=== PATIENT | female | born 1975 | race Caucasian/White ===

== ENCOUNTER 2022-01-09 13:25 | Inpatient (IN) | payer OTHER, SELFPAY ==
--- NOTE | ~2022-01-09 | MR_ITS ---
EXAMINATION: MR MRCP CLINICAL INFORMATION: Biliary colic, rule out common bile duct stone. COMPARISON: Abdominal ultrasound dated 11/10/[address] scan of the abdomen and pelvis dated 01/09/2022. TECHNIQUE: MR abdomen is performed without gadolinium contrast with MRCP. 3-D reconstructed images were obtained on a separate workstation. FINDINGS: LUNG BASES: Unremarkable. LIVER: Mild diffuse homogeneous signal loss on out of phase images. A small T2 hyperintense focus is seen laterally in the right hepatic lobe measuring 1.0 cm (image 2, series 5). No other significant hepatic abnormality. BILIARY: See MRCP comments below. PANCREAS: Unremarkable. SPLEEN: Unremarkable. ADRENAL GLANDS: Unremarkable. KIDNEYS AND URETERS: The kidneys are normal in size and shape. No hydronephrosis. No perinephric stranding. GASTROINTESTINAL TRACT: No bowel obstruction. No ascites or fluid collection. ABDOMINAL WALL: No significant hernia is appreciated. LYMPH NODES: No lymphadenopathy. VASCULAR: Unremarkable. OSSEOUS STRUCTURES: Marrow signal normal. MRCP: There is a persistent small filling defect on several sequences in the distal common bile duct measuring up to 0.2 cm. ([employer] image 4, series 11). The common bile duct measures up to 0.6 cm on this image as well. No significant biliary ductal dilatation. The gallbladder and cystic duct are unremarkable. No significant intrahepatic biliary ductal dilatation. No pancreatic ductal dilatation. MR/MR MRCP IMPRESSION: 1. Persistent 0.2 cm filling defect distally in the common bile duct on several sequences suggests choledocholithiasis. No significant biliary ductal dilatation is seen. No significant gallbladder abnormality as well. 2. Small right hepatic cyst and shows benign features.
--- NOTE | ~2022-01-09 | FL_ITS ---
EXAMINATION: XR FLUOROSCOPY WITH IMAGES CLINICAL INFORMATION: History of biliary colic. MR imaging suggestive of choledocholithiasis. COMPARISON: MRI abdomen from 01/12/2022. TECHNIQUE: Fluoroscopy performed by Dr. Craig. Fluoroscopy time: 1 minute, 12 seconds Dose: 20.65 mGy Number of saved images: 13 FL/FL guidance in OR FINDINGS AND IMPRESSION: This report is provided to document use of fluoroscopic imaging equipment for ERCP. Endoscope placed, common duct cannulated and iodinated contrast injected followed by balloon sweep of the common duct. No dilated ducts. On one of the early acquired images, there appear to be filling defects in the distal CBD but it is uncertain whether this is from common duct stones or gas bubbles Please refer to the procedure report regarding procedure details and findings observed during performance of the ERCP.
--- NOTE | ~2022-01-09 | US_ITS ---
EXAMINATION: US ABDOMEN COMPLETE AND ULTRASOUND PELVIS CLINICAL INFORMATION: Abdominal pain and low back pain. COMPARISON: None TECHNIQUE: Routine complete abdomen ultrasound imaging is performed. Transabdominal and transvaginal imaging of the pelvis is performed. FINDINGS: ABDOMEN: Pancreas: The pancreas is homogeneous in echotexture without focal lesion or enlargement. Aorta and IVC: The abdominal aorta is of normal caliber in its entire length. The IVC is normal. Liver: The liver is normal size and contour with mild increased echogenicity. No focal lesion or intrahepatic ductal dilatation seen. Gallbladder: There are several echogenic mobile gallstones without wall thickening. There is a pericholecystic fluid collection seen. The CBD measures 0.5 cm and appears unremarkable. Right kidney measures 10.0 cm. There is normal cortical thickness. No echogenic stones or hydronephrosis seen. Left kidney measures 9.3 cm. There is normal cortical thickness. No echogenic stones, cysts or hydronephrosis seen. The spleen measures 10.7 cm and appears unremarkable. PELVIS: The uterus is anteverted, anteflexed and homogeneous in echotexture. It measures 10.4 cm in length and 6.8 cm in AP dimension. There is a hypoechoic lesion in the upper posterior body of the uterus measuring 2.4 x 1.6 x 1.9 cm suggestive of a small fibroid. Endometrium is thickened measuring 1.7 cm. There is a small anechoic cyst in the endometrium measuring 5.0 x 3.0 x 5.0 mm. The cervix is unremarkable. Small nabothian cysts are seen in the cervix. Right ovary measures 2.5 x 2.1 x 1.4 cm and volume 3.9 mL. There is a small calcification visualized with normal Doppler flow. Left ovary measures 3.1 x 3.1 x 2.4 cm and volume 12.1 mL. There is an anechoic cyst measuring 1.9 x 1.6 x 1.5 cm. The Doppler flow could not be documented. There is a small amount of free fluid in the cul-de-sac. US/US pelvic and transvaginal IMPRESSION: Mild hepatic steatosis without focal lesion seen. Small mobile echogenic gravel or small stones. No wall thickening or tenderness. Small uterine fibroid in the posterior body of the uterus. Small nabothian cysts in the cervix. Simple cyst left ovary and punctate calcification in the right ovary. Small amount of free fluid in the cul-de-sac.
--- NOTE | ~2022-01-09 | CT_ITS ---
EXAMINATION: CT ABDOMEN AND PELVIS WITHOUT CONTRAST CLINICAL INFORMATION: Right flank pain COMPARISON: None TECHNIQUE: Multidetector volumetric imaging was performed from the superior aspect of the liver through the pubic symphysis. Sagittal and coronal reformatted images were obtained on the technologist's workstation. This CT examination was performed using dose optimization techniques as appropriate, variously including the following: *Automated exposure control *Adjustment of mA and/or kV according to patient size (this includes techniques or standardized protocols for targeted exams where dose is matched to indication/reason for exam; i.e. extremities or head) *Use of iterative reconstruction technique DLP: 615 mGy-cm FINDINGS: LUNG BASES: The visualized lung bases are unremarkable. LIVER, GALLBLADDER, AND BILIARY TREE: The liver is slightly hypoattenuating relative to the spleen consistent with hepatic steatosis. No focal liver lesion. The gallbladder is unremarkable with no evidence of radiopaque gallstones, gallbladder wall thickening, or obvious pericholecystic inflammatory changes. PANCREAS: There is a 4 mm calculus in the head of the pancreas along the course of the common bile duct consistent with choledocholithiasis. SPLEEN: Unremarkable. ADRENAL GLANDS: Unremarkable. KIDNEYS AND URETERS: The kidneys are normal in size, shape, and attenuation. No hydronephrosis, hydroureter, or calculi seen. No perinephric stranding. BLADDER: Unremarkable. GASTROINTESTINAL TRACT: The small and large bowel are unremarkable. The appendix is unremarkable. ABDOMINAL WALL: There is diastases of the rectus abdominis and a small fat-containing umbilical hernia. LYMPH NODES: Normal. VASCULAR: Unremarkable. PELVIC VISCERA: The uterus and adnexa are unremarkable. OSSEOUS STRUCTURES: Unremarkable. CT/CT abdomen pelvis wo con IMPRESSION: 4 mm calcification in the head of the pancreas is along the course of the common bile duct consistent with choledocholithiasis.
[2022-01-09 14:07] VITALS: BP 139/72; PULSE 101; RESP 18; TEMP 36.7; O2SAT 96; BMI 31.3
[2022-01-09 14:40] LABS: Basophils Percent Auto 0.3 % (0-2); Eosinophils Percent Auto 0.3 % (0-4); Hematocrit 42.3 % (37.0-47.0); Hemoglobin 13.9 g/dl (12.0-16.0); Lymphocytes Absolute Auto 1.5 X10*3/uL (1.2-4.9); Lymphocytes Percent Auto 23.5 % (20-40); MANUAL DIFF FLAG NO; Mean Corpuscular HGB Conc 32.9 g/dl (31.0-35.0); Mean Corpuscular Hemoglobin 29.2 pg (27.0-33.0); Mean Corpuscular Volume 88.9 fL (80.0-98.0); Mean Platelet Volume 9.5 fL (9.4-12.3); Monocytes Absolute Auto 0.4 X10*3/uL (0.1-1.2); Monocytes Percent Auto 6.9 % (2-11); Neutrophils Absolute Auto 4.3 x10*3/uL (2.0-8.3); Platelet Count 281 X10*3/uL (160-400); Red Blood Count 4.76 X10*6/uL (4.20-5.50); Red Cell Distribution Width 13.5 % (11.0-16.0); White Blood Count 6.3 X10*3/uL (4.8-10.8)
[2022-01-09 14:57] LABS: Alanine Aminotransferase 134 U/L (0-31); Albumin Level 4.1 g/dL (3.5-5.0); Alkaline Phosphatase 119 U/L (39-117); Anion Gap 11 (12-20); Aspartate Amino Transferase 72 U/L (5-31); Bilirubin Direct 0.2 mg/dL (0.0-0.5); Bilirubin Total 0.5 mg/dL (0.0-1.0); Blood Urea Nitrogen 6 mg/dL (9-16); Calcium 9.6 mg/dL (8.4-10.2); Carbon Dioxide 27 mmol/L (22-29); Chloride 108 mmol/L (96-108); Creatinine Clr Calc Pharmacy 94.7; Estimated Glomerular Filt Rate > 60; Glucose Random 107 mg/dL (60-115); Potassium 3.9 mmol/L (3.3-5.1); Sodium 142 mmol/L (135-145); Total Protein 7.5 g/dL (6.5-8.0)
[2022-01-09 16:23] LABS: Appearance Urine CLEAR; Color Urine YELLOW; Glucose Urine UA NEG (NEG); Leukocyte Esterase Urine NEG (NEG); Nitrite Urine NEG (NEG); Specific Gravity - Urine <= 1.005 (1.005-1.025); Urine Blood NEG (NEG); Urine Ketones NEG (NEG); Urine Protein NEG (NEG-TRACE)
[2022-01-09 16:27] LABS: UPreg QC Valid YES; Urine Pregnancy NEGATIVE (NEGATIVE)
[2022-01-09 16:39] LABS: Lipase 26 U/L (8-78)
[2022-01-09 17:44] VITALS: BP 109/72; PULSE 78; RESP 20; TEMP 36.7; O2SAT 98
--- NOTE | 2022-01-09 18:07 | ED_ITS ---
HPI - Abdominal Pain General Chief Complaint: Abdominal Pain Stated Complaint: Abdominal Pain Radiating to Back Time Seen by Provider: 01/09/22 16:15 Source: patient Mode of arrival: ambulatory Limitations: no limitations History of Present Illness HPI narrative: 46-year-old female past medical history significant for tubal ligation, ovarian cyst presenting to the emergency complaints of right-sided flank pain, right lower abd pain X3 days, irregular menses X a a few months, constipation X 16 years. Patient tells me that she is having right-sided flank pain that does not radiate, she tells me the pain is constant severe. She is unable to tell me what makes his pain better or worse. She also has vague complaints of intermittent right lower quadrant pain. She also reports urinary frequency however denies urgency and dysuria. She tells me she is under lot of stress and is having irregular menses, she reports she has not gotten her period in 2 months. She does have a tubal ligation, this is not the 1st time that she has regular cycles. She denies vaginal bleeding at this time, spotting, discharge. She also reports that she has been struggling with constipation times 16 years since she had her daughter, she tells me she has not been seen by entry level automotive technician for this issue she tells me she takes to coax as well as [id number] stool softeners. She denies fevers, chills, chest pain, sh ortness of breath, nausea, vomiting. Patient tells me that she is currently dealing with a lot of stress, she is currently staying at a halfway, she does not have a PCP, entry level automotive technician or OBGYN. I will provide her with a list of providers in the area. MD elicited complaint: flank pain Pertinent past history: constipation and gastritis Onset (ago): day(s) (3) Pain Consistency: constant Location: R flank Severity: severe Quality: stabbing Radiation: none Migration to: no migration Exacerbating factors: nothing Relieving factors: nothing Associated symptoms: denies other symptoms Related Data Allergies Allergy/AdvReac Type Severity Reaction Status Date / Time ibuprofen [From Motrin] Allergy Hives Verified 01/09/22 14:13 back medicin Allergy Hives Uncoded 01/09/22 14:13 Review of Systems Review of Systems Constitutional : No Weight loss, No Fever, No Chills, No Fatigue, No Malaise ENT/Mouth : No sore throat, No Rhinorrhea Eyes: No Eye Pain, No Swelling, No Redness Cardiovascular : No Chest Pain, No SOB, No Dyspnea on Exertion, No Orthopnea, No Edema, No Palpitations Respiratory : No Cough, No Sputum, No Wheezing Gastrointestinal : No Nausea, No Vomiting, No Diarrhea, No Constipation, + abdominal Pain, No Hematochezia, No Melena Genitourinary : No Dysuria, + Urinary Frequency, No Hematuria, Musculoskeletal : No joint pain, No Myalgias, No Joint Swelling Skin : No Skin Lesions, No rash Neuro : No Weakness, No Numbness, No Dizziness, No Headache Psych : No Anxiety/Panic, No Depression All other systems reviewed and are negative Yes all other systems are reviewed and are negative COUNT INCLUDES THE [facility] Past Medical History Attestation statement: The following information was validated with the patient. Source: old records reviewed and nursing notes reviewed Social History Social History Advance Directives: No Advance Directives Information Provided: No Physical Exam ED Vital Signs: Vital Signs - 24 hr 01/09/22 14:07 01/09/22 17:44 Temperature 98.0 F 98.0 F Pulse Rate 101 H 78 Respiratory Rate 18 20 Blood Pressure 139/72 109/72 Pulse Oximetry 96 98 BMI result Body Mass Index 31.3 Vital signs stable. Appearance: Alert.? Oriented X3.? No acute distress.? Head: Normocephalic, atraumatic, no step-offs or deformities Eyes: Pupils equal, round and reactive to light.? ENT: Pharynx normal.? Neck: Normal inspection.? Neck supple.? CVS: Normal heart rate and rhythm.? Pulses normal.? Respiratory: No respiratory distress.? Breath sounds normal.? Abdomen: Soft and nontender.? Skin: Skin warm and dry.? Normal skin color.? Normal skin turgor.? Extremities: No lower extremity edema.? No calf ttp. 5/5 strength to bilateral upper and lower extremities Back: No midline tenderness, no C-spine tenderness, full range of motion, no CVA tenderness bilaterally Neuro: Oriented X 3.? No motor deficit.? No sensory deficit. CN 2-12 intact Course Reevaluation(s) Reevaluation #1: CBC within normal limits, chemistry with mildly elevated transaminases, bilirubin normal alk-phos slightly elevated. No acute electrolyte abnormalities requiring intervention. Patient's CT scan concerning for choledocholithiasis. Urine is clean. Spoke to GI who tells me patient will require an MRCP as well as trending LFTs. Plan is to admit patient to the hospitalist team. Time: 19:41 Reevaluation #2: I ordered an MRCP stat for this patient as she is noted to have choledocholithiasis. Pain is well controlled with oxycodone 5 p.o.. Patient appears comfortable and in no acute distress. At this time she will be admitted to the hospitalist team. MDM - Abdominal Pain MDM Narrative Medical decision making narrative: 1807 46-year-old female history tubal ligation, ovarian cyst presents to the emergency department with complaints of right flank pain, intermittent right lower quadrant pain x3 days. As well as irregular menses x2 months, and constipation times 16 years. Patient is not followed by outpatient providers, currently living at a halfway. Physical examination benign. Plan at this time is labs, urine, lipase, CT of the abdomen and pelvis. Will rule out kidney stones, appendicitis, constipation, lactulose abnormalities, UTI. Unlikely that this is a of ovarian cysts, patient appears comfortable, she is not febrile or tachycardic, no CVA tenderness. Denies dyspareunia. Medical Records Attestation: I reviewed the patient's medical records. Lab Data Attestation: I reviewed the patient's lab results. Result diagrams: 01/09/22 14:36 01/09/22 14:36 Labs: Lab Results 01/09/22 01/09/22 01/09/22 Range/Units 14:36 14:36 16:15 WBC 6.3 (4.8-10.8) X10*3/uL RBC 4.76 (4.20-5.50) X10*6/uL Hgb 13.9 (12.0-16.0) g/dl Hct 42.3 (37.0-47.0) % MCV 88.9 (80.0-98.0) fL MCH 29.2 (27.0-33.0) pg MCHC 32.9 (31.0-35.0) g/dl RDW 13.5 (11.0-16.0) % Plt Count 281 (160-400) X10*3/uL MPV 9.5 (9.4-12.3) fL Immature Gran % (Auto) 0.0 (0.0-0.4) % Neut % (Auto) 69.0 (45-73) % Lymph % (Auto) 23.5 (20-40) % [place] % (Auto) 6.9 (2-11) % Eos % (Auto) 0.3 (0-4) % Baso % (Auto) 0.3 (0-2) % Lymph # (Auto) 1.5 (1.2-4.9) X10*3/uL [place] # (Auto) 0.4 (0.1-1.2) X10*3/uL Eos # (Auto) 0.0 (0.0-0.4) X10*3/uL Baso # (Auto) 0.0 (0.0-0.2) X10*3/uL Abs Immat Gran (auto) 0.00 (0.00-0.03) X10*3/uL Absolute Neuts (auto) 4.3 (2.0-8.3) x10*3/uL Absolute Nucleated RBC 0.000 (0.0-0.012) X10*3/uL Nucleated RBC % (auto) 0.0 (0.0-0.2) /100WBC Sodium 142 (135-145) mmol/L Potassium 3.9 (3.3-5.1) mmol/L Chloride 108 (96-108) mmol/L Carbon Dioxide 27 (22-29) mmol/L Anion Gap 11 L (12-20) BUN 6 L (9-16) mg/dL Creatinine 0.78 (0.5-1.4) mg/dL Estim Creat Clear Calc 94.7 Estimated GFR > 60 Random Glucose 107 (60-115) mg/dL Calcium 9.6 (8.4-10.2) mg/dL Total Bilirubin 0.5 (0.0-1.0) mg/dL Direct Bilirubin 0.2 (0.0-0.5) mg/dL AST 72 H (5-31) U/L ALT 134 H (0-31) U/L Alkaline Phosphatase 119 H (39-117) U/L Total Protein 7.5 (6.5-8.0) g/dL Albumin 4.1 (3.5-5.0) g/dL Lipase 26 (8-78) U/L Urine Color YELLOW Urine Appearance CLEAR Urine pH 6.0 (5.0-8.0) Ur Specific [place] <= 1.005 (1.005-1.025) Urine Protein NEG (NEG-TRACE) MG/DL Urine Glucose (UA) NEG (NEG) MG/DL Urine Ketones NEG (NEG) MG/DL Urine Blood NEG (NEG) Urine Nitrite NEG (NEG) Ur Leukocyte Esterase NEG (NEG) Urine Test (NEGATIVE) 01/09/22 Range/Units 16:15 WBC (4.8-10.8) X10*3/uL RBC (4.20-5.50) X10*6/uL Hgb (12.0-16.0) g/dl Hct (37.0-47.0) % MCV (80.0-98.0) fL MCH (27.0-33.0) pg MCHC (31.0-35.0) g/dl RDW (11.0-16.0) % Plt Count (160-400) X10*3/uL MPV (9.4-12.3) fL Immature Gran % (Auto) (0.0-0.4) % Neut % (Auto) (45-73) % Lymph % (Auto) (20-40) % [place] % (Auto) (2-11) % Eos % (Auto) (0-4) % Baso % (Auto) (0-2) % Lymph # (Auto) (1.2-4.9) X10*3/uL [place] # (Auto) (0.1-1.2) X10*3/uL Eos # (Auto) (0.0-0.4) X10*3/uL Baso # (Auto) (0.0-0.2) X10*3/uL Abs Immat Gran (auto) (0.00-0.03) X10*3/uL Absolute Neuts (auto) (2.0-8.3) x10*3/uL Absolute Nucleated RBC (0.0-0.012) X10*3/uL Nucleated RBC % (auto) (0.0-0.2) /100WBC Sodium (135-145) mmol/L Potassium (3.3-5.1) mmol/L Chloride (96-108) mmol/L Carbon Dioxide (22-29) mmol/L Anion Gap (12-20) BUN (9-16) mg/dL Creatinine (0.5-1.4) mg/dL Estim Creat Clear Calc Estimated GFR Random Glucose (60-115) mg/dL Calcium (8.4-10.2) mg/dL Total Bilirubin (0.0-1.0) mg/dL Direct Bilirubin (0.0-0.5) mg/dL AST (5-31) U/L ALT (0-31) U/L Alkaline Phosphatase (39-117) U/L Total Protein (6.5-8.0) g/dL Albumin (3.5-5.0) g/dL Lipase (8-78) U/L Urine Color Urine Appearance Urine pH (5.0-8.0) Ur Specific [place] (1.005-1.025) Urine Protein (NEG-TRACE) MG/DL Urine Glucose (UA) (NEG) MG/DL Urine Ketones (NEG) MG/DL Urine Blood (NEG) Urine Nitrite (NEG) Ur Leukocyte Esterase (NEG) Urine Test NEGATIVE (NEGATIVE) Critical Care Time Critical Care Time Critical Care Time: Yes Total Critical Care Time: 35 Attestation: I attest to this time spent taking care of the patient, obtaining history, physical, reviewing labs, imaging, speaking to my attending, speaking to specialist. Discharge Plan Discharge Clinical Impression: Constipation, Choledocholithiasis Patient Disposition: Admitted As Inpatient Additional Instructions: Take your medications as prescribed. If you were prescribed antibiotics today, it is important that you take your medication to their entirety, do not skip any doses, do not finish them early. Follow-up with your primary care provider this week. Follow-up with gastroenterology as necessary and OBGYN . Number below. Return to the emergency department with new or worsening symptoms. Such as fevers, chills, chest pain, shortness of breath, nausea, vomiting, dizziness, headache, vision changes, lethargy In case of emergency call 911
--- NOTE | 2022-01-09 18:08 | PC.NURSE ---
PT REFUSING TO BE PLACED IN ROOM 15. SHE WAS OFFERED A SILVER BED AND DECLINED.
[2022-01-09] MEDS: oxyCODONE HCl Immed Release 5 MG TABLET PO (19:03)
--- NOTE | 2022-01-09 19:15 | PC.NURSE ---
Patient medicated with pain medication per emar. Patient also asking for food and provider stated it was okay. Patient given sandwich and beverage
[2022-01-09 20:49] VITALS: BP 112/71; PULSE 75; RESP 18; TEMP 36.8; O2SAT 99
--- NOTE | 2022-01-09 20:53 | PHA.MEDREC ---
Pharmacy Consult ? Medication Reconciliation Pharmacy has completed the medication reconciliation.
[2022-01-09 20:55] VITALS: BP 112/71; PULSE 79; RESP 18; O2SAT 98
[2022-01-09] MEDS: Dicyclomine HCl 10 MG CAPSULE 20 MG PO (21:01)
--- NOTE | 2022-01-09 22:07 | P.HPHOSP_ITS ---
History of Present Illness Date of Service: 01/09/22 Chief Complaint: right flank pain 46-year-old female with a past medical history of gastritis, GERD, constipation, history of ; presented to the hospital today with a chief complaint of right flank pain. Patient reports that for the past 3 days she has been having right flank pain associated nausea; denies any diarrhea. Denies any fever chills. Denies any cough or sputum production. Denies any urinary symptoms. Patient reports constipation Review of all other systems is negative except mentioned above ER course: Per ER team patient noted to have right flank tenderness; CT scan showed findings consistent with choledocholithiasis; on labs noted to have mild transaminitis; patient is afebrile and no leukocytosis. Notified Gastroent erology who suggested MRCP. Admitted for further management. [facility] Medical History Constipation Gallstones Gestational diabetes Heart murmur Hepatic steatosis Neck pain PTSD (post-traumatic stress disorder) Family History Mother Breast cancer, Onset Age: 50 Pertinent family history: mother has breast cancer Surgical History H/O tubal ligation History of ERCP (01/13/22) History of laparoscopic cholecystectomy (01/15/22) Social History Household Members: Spouse and Children Housing: Other Housing Other:: custodial Alcohol intake: never Patient Tobacco Use Status: Never used Tobacco Second Hand Smoke Exposure: No Advance Directives: No Advance Directives Information Provided: No service: No Current occupational status: unemployed Meds Allergies Allergy/AdvReac Type Severity Reaction Status Date / Time ibuprofen [From Motrin] Allergy Hives Verified 01/29/22 11:32 NSAIDS (Non-Steroidal Allergy Hives Verified 01/29/22 11:32 Anti-Inflamma back medicin Allergy Hives Uncoded 01/29/22 11:32 Active Medications: Current Medications Pharmacy Consult (Consult Rx Perform Med Rec) 1 each MISCELLANE ONCE PRN PRN Reason: Consult order Home Medications Medication Instructions Recorded Confirmed Last Taken Type multivitamin 1 tab PO DAILY 01/09/22 01/29/22 01/08/22 History Physical Exam Vital Signs and Narrative: Vital Signs: Last Vital Signs Temp 98.2 F 01/09/22 20:49 Pulse 79 01/09/22 20:55 Resp 18 01/09/22 20:55 BP 112/71 01/09/22 20:55 Pulse Ox 98 01/09/22 20:55 BMI result Body Mass Index 31.3 Gen: Appears be in no acute distress HEENT: NCAT, Moist mucosa. Pulmonary: Vesicular breath sounds, fair air entry CVS: Normal S1-S2 Abdomen: BS+, Soft, mildly tender in the right flank; no guarding no rigidity Extremities: Warm well perfused Neuro: Alert and awake. Results Labs CBC and Chem 7: 01/16/22 05:13 01/16/22 05:13 Labs: Laboratory Results - last 24 hr 01/09/22 01/09/22 01/09/22 14:36 14:36 16:15 MCV 88.9 MCH 29.2 MCHC 32.9 RDW 13.5 Plt Count 281 MPV 9.5 Immature Gran % (Auto) 0.0 Neut % (Auto) 69.0 Lymph % (Auto) 23.5 [place] % (Auto) 6.9 Eos % (Auto) 0.3 Baso % (Auto) 0.3 Lymph # (Auto) 1.5 [place] # (Auto) 0.4 Eos # (Auto) 0.0 Baso # (Auto) 0.0 Abs Immat Gran (auto) 0.00 Absolute Neuts (auto) 4.3 Absolute Nucleated RBC 0.000 Nucleated RBC % (auto) 0.0 Anion Gap 11 L Estim Creat Clear Calc 94.7 Estimated GFR > 60 Random Glucose 107 Calcium 9.6 Total Bilirubin 0.5 Direct Bilirubin 0.2 AST 72 H ALT 134 H Alkaline Phosphatase 119 H Total Protein 7.5 Albumin 4.1 Lipase 26 Urine Color YELLOW Urine Appearance CLEAR Urine pH 6.0 Ur Specific [place] <= 1.005 Urine Protein NEG Urine Glucose (UA) NEG Urine Ketones NEG Urine Blood NEG Urine Nitrite NEG Ur Leukocyte Esterase NEG Urine Test 01/09/22 16:15 MCV MCH MCHC RDW Plt Count MPV Immature Gran % (Auto) Neut % (Auto) Lymph % (Auto) [place] % (Auto) Eos % (Auto) Baso % (Auto) Lymph # (Auto) [place] # (Auto) Eos # (Auto) Baso # (Auto) Abs Immat Gran (auto) Absolute Neuts (auto) Absolute Nucleated RBC Nucleated RBC % (auto) Anion Gap Estim Creat Clear Calc Estimated GFR Random Glucose Calcium Total Bilirubin Direct Bilirubin AST ALT Alkaline Phosphatase Total Protein Albumin Lipase Urine Color Urine Appearance Urine pH Ur Specific [place] Urine Protein Urine Glucose (UA) Urine Ketones Urine Blood Urine Nitrite Ur Leukocyte Esterase Urine Test NEGATIVE Imaging Radiologist's Impressions: Impressions Abdomen/Pelvis CT 01/09/22 18:59 IMPRESSION: 4 mm calcification in the head of the pancreas is along the course of the common bile duct consistent with choledocholithiasis. Assessment and Plan (1) Choledocholithiasis: Status: Resolved Plan 46-year-old female with a past medical history of gastritis, GERD, constipation, history of ; presented to the hospital today with a chief complaint of right flank pain. Noted to have choledocholithiasis/transaminitis. Admitted for further management. Choledocholithiasis/ transaminitis: Trend liver enzymes Gastroenterology Dr. Craig was notified MRCP has been ordered ( notified radiology) will obtain acute hepatitis panel History of gastritis: Pepcid DVT prophylaxis: Subcu heparin Code status: Full code Quality Stroke Does the patient have a stroke diagnosis?: No VTE Prior VTE?: No VTE Risk Level:: Medical - moderate - high VTE Device Contraindication: Treatment Not Indicated VTE Drug Contraindication: N/A - Med Ordered
[2022-01-09 22:50] VITALS: BP 136/89; PULSE 69; RESP 16; TEMP 36.6; O2SAT 97
[2022-01-09] MEDS: Dextrose 5 % and 0.45 % NaCl 1,000 ML 100 ML IVCONT (23:03)
[2022-01-09] MEDS: Heparin Sodium,Porcine 5,000 UNIT/ML VIAL 5000 UNIT SUBCUT (23:04)
[2022-01-09] MEDS: Melatonin 3 MG TABLET 6 MG PO (23:15)
[2022-01-09 23:16] VITALS: RESP 15
[2022-01-09] MEDS: HYDROmorphone HCl 0.5 MG/0.5 ML SYRINGE IVPUSH (23:16)
[2022-01-10] MEDS: 0.9 % Sodium Chloride Flush 3 ML SYRINGE IVFLUSH ×3 (00:50→20:56)
[2022-01-10 03:23] VITALS: BP 119/82; PULSE 74; RESP 16; O2SAT 97
[2022-01-10 05:26] LABS: COVID-19 Test Negative (Negative); IDNOW Serial# 9DB6401D
[2022-01-10 06:33] VITALS: BP 122/81; PULSE 76; RESP 15; O2SAT 97
[2022-01-10 08:17] LABS: MANUAL DIFF FLAG NO
[2022-01-10 08:19] LABS: Basophils Percent Auto 0.2 % (0-2); Eosinophils Absolute Auto 0.1 X10*3/uL (0.0-0.4); Eosinophils Percent Auto 1.3 % (0-4); Hematocrit 38.8 % (37.0-47.0); Hemoglobin 12.6 g/dl (12.0-16.0); Lymphocytes Absolute Auto 1.9 X10*3/uL (1.2-4.9); Lymphocytes Percent Auto 33.6 % (20-40); Mean Corpuscular HGB Conc 32.5 g/dl (31.0-35.0); Mean Corpuscular Hemoglobin 28.8 pg (27.0-33.0); Mean Corpuscular Volume 88.8 fL (80.0-98.0); Monocytes Absolute Auto 0.5 X10*3/uL (0.1-1.2); Monocytes Percent Auto 8.6 % (2-11); Neutrophils Absolute Auto 3.2 x10*3/uL (2.0-8.3); Neutrophils Percent Auto 56.3 % (45-73); Platelet Count 217 X10*3/uL (160-400); Red Blood Count 4.37 X10*6/uL (4.20-5.50); Red Cell Distribution Width 13.6 % (11.0-16.0); White Blood Count 5.6 X10*3/uL (4.8-10.8)
[2022-01-10 08:48] LABS: Alanine Aminotransferase 124 U/L (0-31); Albumin Level 3.4 g/dL (3.5-5.0); Alkaline Phosphatase 106 U/L (39-117); Anion Gap 11 (12-20); Aspartate Amino Transferase 73 U/L (5-31); Bilirubin Direct 0.2 mg/dL (0.0-0.5); Bilirubin Total 0.5 mg/dL (0.0-1.0); Blood Urea Nitrogen 5 mg/dL (9-16); Calcium 8.5 mg/dL (8.4-10.2); Carbon Dioxide 23 mmol/L (22-29); Chloride 108 mmol/L (96-108); Creatinine Clr Calc Pharmacy 111.9; Estimated Glomerular Filt Rate > 60; Glucose Random 119 mg/dL (60-115); Potassium 4.4 mmol/L (3.3-5.1); Sodium 138 mmol/L (135-145); Total Protein 6.6 g/dL (6.5-8.0)
[2022-01-10] MEDS: Heparin Sodium,Porcine 5,000 UNIT/ML VIAL 5000 UNIT SUBCUT ×3 (09:08→20:54)
[2022-01-10] MEDS: HYDROmorphone HCl 0.5 MG/0.5 ML SYRINGE IVPUSH ×2 (09:09→20:54)
[2022-01-10] MEDS: Multivitamin TABLET 1 TAB PO (09:09)
[2022-01-10] MEDS: Famotidine/PF 20 MG/2 ML VIAL IVPUSH ×2 (09:09→20:54)
[2022-01-10] MEDS: LORazepam 2 MG/ML VIAL 0.5 MG IVPUSH (10:47)
[2022-01-10] MEDS: Dextrose 5 % and 0.45 % NaCl 1,000 ML 100 ML IVCONT (11:32)
--- NOTE | 2022-01-10 12:59 | MHC.CM.PN ---
CM MET WITH PT AND HER WHO WAS AT BEDSIDE PT REPORTS SHE IS CURRENTLY LIVING IN A FAMILY CARE HOME IN [place] SHE REPORTS SHE DOES NOT LIKE THE CARE HOME BUT IS LOOKING FOR PERMANENT HOUSING SHE ALREADY HAS SECTION 8 SHE REPORTS SHE DOES NOT HAVE A PCP OR MH PROVIDERS SHE RECENTLY MOVED TO THE [place] CM PROVIDED INFORMATION [place] [facility] [place] [facility] UNTIL SHE HAS PROVIDERS PT DENIES USING DME OR HOME SERVICES PT DOES NOT HAVE A HCP DC PLAN, RETURN TO FAMILY CARE HOME VIA PRIVATE TRANSPORT
[2022-01-10 13:50] VITALS: BP 109/67; PULSE 67; RESP 16; TEMP 36.3; O2SAT 95
--- NOTE | 2022-01-10 14:21 | HO.PM.IMPN ---
Subjective Subjective Date of Service: 01/10/22 Interval History: Patient seen and examined at bedside. Reports that she is having anxiety. Has various complaints but reports that her abdominal pain has improved with the pain medications. She reports numbness. For the past 2 months. She reports urinary frequency for 2 months as well as suprapubic pain for the same amount of time she currently has no nausea, no vomiting. reports chronic constipation No other acute complaint Review of Systems Review of Systems: Yes all other systems are reviewed and are negative Physical Exam Vital Signs: Vital Signs: Last Vital Signs Temp 97.4 F 01/10/22 13:50 Pulse 67 01/10/22 13:50 Resp 16 01/10/22 13:50 BP 109/67 01/10/22 13:50 Pulse Ox 95 01/10/22 13:50 BMI result Body Mass Index 31.3 Const: General: cooperative and no acute distress Resp: Effort & Inspection: normal respiratory effort Auscultation: clear to auscultation bilaterally GI: Other: Right flank tenderness, right lower quadrant tenderness : Other: no suprapubic tenderness Objective Data Active Medications Famotidine (Famotidine/Pf 20 Mg/2 Ml Vial) [address] [facility] Last Admin: 01/10/22 09:09 Dose: 20 mg Documented by: EDISON Heparin Sodium (Porcine) (Heparin Sodium,Porcine 5,000 Unit/Ml Vial) 5,[address] [facility] Last Admin: 01/10/22 09:08 Dose: 5,000 unit Documented by: EDISON Hydromorphone HCl (Hydromorphone Hcl 0.5 Mg/0.5 Ml Syringe) 0.5 mg IVPUSH Q4H PRN; Protocol PRN Reason: Pain, Severe (Pain Scale 7-10) Last Admin: 01/10/22 09:09 Dose: 0.5 mg Documented by: EDISON Dextrose/Sodium Chloride (D51/2ns) 1,000 mls @ 100 mls/hr IVCONT .Q10H [facility] Last Admin: 01/10/22 11:32 Dose: 100 mls/hr Documented by: EDISON Melatonin (Melatonin 3 Mg Tablet) 6 mg PO BEDTIME PRN PRN Reason: Insomnia Last Admin: 01/09/22 23:15 Dose: 6 mg Documented by: NESSA Multivitamins/Vitamin C (Multivitamin Tablet) [address] [facility] Last Admin: 01/10/22 09:09 Dose: 1 tab Documented by: EDISON Ondansetron HCl (Ondansetron Hcl 4 Mg/2 Ml Vial) 4 mg IVPUSH Q8H PRN PRN Reason: Nausea and Vomiting Pharmacy Consult (Consult Rx Perform Med Rec) 1 each MISCELLANE ONCE PRN PRN Reason: Consult order Senna (Sennosides 8.6 Mg Tablet) 17.2 mg PO BEDTIME PRN PRN Reason: Constipation Sodium Chloride (0.9 % Sodium Chloride Flush 3 Ml Syringe) [address] [facility] Last Admin: 01/10/22 09:10 Dose: Not Given Documented by: EDISON Non-Admin Reason: IV Running Labs CBC & Chem 7: 01/10/22 07:49 01/10/22 07:49 Labs: Laboratory Results - last 24 hr 01/09/22 01/09/22 01/09/22 14:36 14:36 16:15 MCV 88.9 MCH 29.2 MCHC 32.9 RDW 13.5 Plt Count 281 MPV 9.5 Immature Gran % (Auto) 0.0 Neut % (Auto) 69.0 Lymph % (Auto) 23.5 [place] % (Auto) 6.9 Eos % (Auto) 0.3 Baso % (Auto) 0.3 Lymph # (Auto) 1.5 [place] # (Auto) 0.4 Eos # (Auto) 0.0 Baso # (Auto) 0.0 Abs Immat Gran (auto) 0.00 Absolute Neuts (auto) 4.3 Absolute Nucleated RBC 0.000 Nucleated RBC % (auto) 0.0 Anion Gap 11 L Estim Creat Clear Calc 94.7 Estimated GFR > 60 Random Glucose 107 Calcium 9.6 Total Bilirubin 0.5 Direct Bilirubin 0.2 AST 72 H ALT 134 H Alkaline Phosphatase 119 H Total Protein 7.5 Albumin 4.1 Lipase 26 Urine Color YELLOW Urine Appearance CLEAR Urine pH 6.0 Ur Specific [place] <= 1.005 Urine Protein NEG Urine Glucose (UA) NEG Urine Ketones NEG Urine Blood NEG Urine Nitrite NEG Ur Leukocyte Esterase NEG Urine Test COVID-19 ([facility]) COVID-19 Clin Com 01/09/22 01/10/22 01/10/22 16:15 05:03 07:49 MCV 88.8 MCH 28.8 MCHC 32.5 RDW 13.6 Plt Count 217 MPV 10.0 Immature Gran % (Auto) 0.0 Neut % (Auto) 56.3 Lymph % (Auto) 33.6 [place] % (Auto) 8.6 Eos % (Auto) 1.3 Baso % (Auto) 0.2 Lymph # (Auto) 1.9 [place] # (Auto) 0.5 Eos # (Auto) 0.1 Baso # (Auto) 0.0 Abs Immat Gran (auto) 0.00 Absolute Neuts (auto) 3.2 Absolute Nucleated RBC 0.000 Nucleated RBC % (auto) 0.0 Anion Gap Estim Creat Clear Calc Estimated GFR Random Glucose Calcium Total Bilirubin Direct Bilirubin AST ALT Alkaline Phosphatase Total Protein Albumin Lipase Urine Color Urine Appearance Urine pH Ur Specific [place] Urine Protein Urine Glucose (UA) Urine Ketones Urine Blood Urine Nitrite Ur Leukocyte Esterase Urine Test NEGATIVE COVID-19 ([facility]) Negative COVID-19 Clin Com See Note 01/10/22 01/10/22 07:49 07:49 MCV MCH MCHC RDW Plt Count MPV Immature Gran % (Auto) Neut % (Auto) Lymph % (Auto) [place] % (Auto) Eos % (Auto) Baso % (Auto) Lymph # (Auto) [place] # (Auto) Eos # (Auto) Baso # (Auto) Abs Immat Gran (auto) Absolute Neuts (auto) Absolute Nucleated RBC Nucleated RBC % (auto) Anion Gap 11 L Estim Creat Clear Calc 111.9 Estimated GFR > 60 Random Glucose 119 H Calcium 8.5 D Total Bilirubin 0.5 Cancelled Direct Bilirubin 0.2 Cancelled AST 73 H Cancelled ALT 124 H Cancelled Alkaline Phosphatase 106 Cancelled Total Protein 6.6 Cancelled Albumin 3.4 L Cancelled Lipase Urine Color Urine Appearance Urine pH Ur Specific [place] Urine Protein Urine Glucose (UA) Urine Ketones Urine Blood Urine Nitrite Ur Leukocyte Esterase Urine Test COVID-19 ([facility]) COVID-19 Clin Com Assessment and Plan (1) Constipation: Status: Acute (2) Choledocholithiasis: Status: Acute (3) Transaminitis: Status: Acute (4) Flank pain: Status: Acute Plan 46-year-old female with a past medical history of gastritis, GERD, constipation, history of ; presented to the hospital today with a chief complaint of right flank pain.? ? Noted to have choledocholithiasis/transaminitis.? Admitted for further management.? # Transaminitis - likely 2/2 choledolithiasis - pleauting at this time - MRCP was done this am showed no obstructing stone- possibly passed - will continue to trend LFTs # Flank pain - Possibly 2/2 cholidolithiasis - improving - Pelvic US being done to r/o ovarian causes - results pending, less likely - supportive care at this time # constipation - chronic - stool softener dvt ppx: heparin subq Quality Stroke Does the patient have a stroke diagnosis?: No VTE Prior VTE?: No VTE Risk Level:: Medical - moderate - high VTE Device Contraindication: Treatment Not Indicated VTE Drug Contraindication: N/A - Med Ordered
--- NOTE | 2022-01-10 14:27 | P.CNGI_ITS ---
History of Present Illness Data of Consult Service Date: 01/10/22 Requesting physician: Hilario Grove Primary Care Provider: Unknown Physician HPI Reason for consult: choledocholithiasis 46-year-old female with a past medical history of gastritis, GERD, constipation, history of who I am seeing for assessment of abn LFT< and choledocholithiasis. Patient has had 3 d of constant right lower flank pain with radiaiton into lower abdomen and RLQ. No releiving factors. Associated with nausea and poor appetite, not worse with food, Denies diarrhea, does have constipation, last stool yesterday and was normal, no melena or blood. Denies any cough or sputum production.? Denies any urinary symptoms. She castellanos not had periods for 2 months which is abnormal for her, no vaginal d/c She says at baseline she has attacks of gastritis' with epigastric pain and bloating, and satiety but this is different LFT were mildly elevated, BILI was normal --improved today with downtrending alk phos CT with small stone like material in CBD and gallbladder Review of Systems Review of Systems: Constitutional : No Weight loss, No Fever, No Chills ENT/Mouth : No sore throat, No Rhinorrhea Eyes: No Swelling, No Redness Cardiovascular : No Chest Pain, No SOB, No Edema Respiratory : No Cough, No Sputum, No Wheezing Gastrointestinal : see HPI Genitourinary : NO Dysuria, No Urinary Frequency, No Hematuria, No Urgency Musculoskeletal : No joint pain, No Myalgias, No Joint Swelling Skin : No Skin Lesions, No rash Neuro : No Weakness, No Numbness, No Dizziness, No Headache Psych : No Anxiety/Panic, No Depression Heme/Lymph: No Bruising, No Lymphadenopathy Endocrine : No Polyuria, No Polydipsia All other systems reviewed and are negative. [facility] Past Medical History Medical History (Updated 01/10/22 @ 14:35 by Aly Craig MD) Constipation Family History Pertinent family history: no Fh of ulcers or gallstones Social History Social History (Updated 01/10/22 @ 14:36 by Aly Craig MD) Household Members: Spouse and Children Housing: Other Housing Other:: [facility] Alcohol intake: never Patient Tobacco Use Status: Never used Tobacco Patient Interested in Nicotine Replacement: No Second Hand Smoke Exposure: No Use of substances other than those prescribed or required for medical reasons: No Currently Displaying Signs/Symptoms of Drug Intoxication Withdrawal: No Any prior treatment program specific to substance use: No Have you been hit, kicked, punched, or otherwise hurt by someone within the past year? If so, by whom?: No Do you feel safe in your current relationship?: Yes Is there a partner from a previous relationship who is making you feel unsafe now?: No Are you made to feel afraid or neglected: No Advance Directives: No Advance Directives Information Provided: No Advance Directives on File: No Do you have thoughts of harming others: None Do you have a plan to hurt others: No Plan Recently lost weight without trying: Unsure Eating poorly because of decreased appetite: Yes Nutrition Risks: Anorexia Patient : No : No Poor oral hygiene: No service: No Current occupational status: unemployed Meds Allergies Allergy/AdvReac Type Severity Reaction Status Date / Time ibuprofen [From Motrin] Allergy Hives Verified 01/09/22 14:13 back medicin Allergy Hives Uncoded 01/09/22 14:13 Active Medications: Current Medications Famotidine (Famotidine/Pf 20 Mg/2 Ml Vial) 20 mg IVPUSH BID [facility] Last Admin: 01/10/22 09:09 Dose: 20 mg Documented by: Heparin Sodium (Porcine) (Heparin Sodium,Porcine 5,000 Unit/Ml Vial) 5,000 unit SUBCUT Q8H [facility] Last Admin: 01/10/22 09:08 Dose: 5,000 unit Documented by: Hydromorphone HCl (Hydromorphone Hcl 0.5 Mg/0.5 Ml Syringe) 0.5 mg IVPUSH Q4H PRN; Protocol PRN Reason: Pain, Severe (Pain Scale 7-10) Last Admin: 01/10/22 09:09 Dose: 0.5 mg Documented by: Dextrose/Sodium Chloride (D51/2ns) 1,000 mls @ 100 mls/hr IVCONT .Q10H [facility] Last Admin: 01/10/22 11:32 Dose: 100 mls/hr Documented by: Melatonin (Melatonin 3 Mg Tablet) 6 mg PO BEDTIME PRN PRN Reason: Insomnia Last Admin: 01/09/22 23:15 Dose: 6 mg Documented by: Multivitamins/Vitamin C (Multivitamin Tablet) 1 tab PO DAILY [facility] Last Admin: 01/10/22 09:09 Dose: 1 tab Documented by: Ondansetron HCl (Ondansetron Hcl 4 Mg/2 Ml Vial) 4 mg IVPUSH Q8H PRN PRN Reason: Nausea and Vomiting Pharmacy Consult (Consult Rx Perform Med Rec) 1 each MISCELLANE ONCE PRN PRN Reason: Consult order Senna (Sennosides 8.6 Mg Tablet) 17.2 mg PO BEDTIME PRN PRN Reason: Constipation Sodium Chloride (0.9 % Sodium Chloride Flush 3 Ml Syringe) 3 ml IVFLUSH QSHIFT [facility] Last Admin: 01/10/22 09:10 Dose: Not Given Documented by: Home Medications Medication Instructions Recorded Confirmed Last Taken Type multivitamin 1 tab PO DAILY 01/09/22 01/09/22 01/08/22 History Physical Exam Vital Signs: Vital Signs: Last Vital Signs Temp 97.4 F 01/10/22 13:50 Pulse 67 01/10/22 13:50 Resp 16 01/10/22 13:50 BP 109/67 01/10/22 13:50 Pulse Ox 95 01/10/22 13:50 BMI result Body Mass Index 31.3 EXAM: GENERAL: The patient is well developed and nontoxic. VITAL SIGNS:see workflow HEENT: Nonicteric sclerae, PERRLA, EOMI. Oropharynx clear. Moist mucous membranes. Conjunctivae appear well perfused. No thyroid mass. CHEST: Chest wall is nontender. HEART: Regular rate and rhythm without murmurs. LUNGS: Clear to auscultation bilaterally. ABDOMEN: Soft, positive bowel sounds, tender right flank and RLQ, lower spine, no organomegaly.no flank tenderness SKIN: No rash, no excessive bruising, petechiae, or purpura. NEUROLOGIC: Cranial nerves II-XII intact without motor/sensory deficit. MS: tender lower lumbar spine psych- nml affect Results Labs CBC & Chem 7: 01/10/22 07:49 01/10/22 07:49 Labs: Short CBC 01/09/22 01/10/22 Range/Units 14:36 07:49 WBC 6.3 5.6 (4.8-10.8) X10*3/uL Hgb 13.9 12.6 (12.0-16.0) g/dl Hct 42.3 38.8 (37.0-47.0) % Plt Count 281 217 (160-400) X10*3/uL BMP 01/09/22 01/10/22 14:36 07:49 Sodium 142 138 Potassium 3.9 4.4 Chloride 108 108 Carbon Dioxide 27 23 BUN 6 L 5 L Creatinine 0.78 0.66 Calcium 9.6 8.5 D Liver Function 01/09/22 01/10/22 01/10/22 Range/Units 14:36 07:49 07:49 Total Bilirubin 0.5 0.5 Cancelled (0.0-1.0) mg/dL Direct Bilirubin 0.2 0.2 Cancelled (0.0-0.5) mg/dL AST 72 H 73 H Cancelled (5-31) U/L ALT 134 H 124 H Cancelled (0-31) U/L Alkaline Phosphatase 119 H 106 Cancelled (39-117) U/L Albumin 4.1 3.4 L Cancelled (3.5-5.0) g/dL Urine 01/09/22 Range/Units 16:15 Urine Color YELLOW Urine Appearance CLEAR Urine pH 6.0 (5.0-8.0) Ur Specific [place] <= 1.005 (1.005-1.025) Urine Protein NEG (NEG-TRACE) MG/DL Urine Glucose (UA) NEG (NEG) MG/DL Imaging CT scan - abdomen: Attestation: I personally reviewed and interpreted this imaging study as follows: (small calcification in Gb and distal CBD, clacificiations in pelvic area, constipation, mild spinal degen) Assessment and Plan (1) Constipation: Status: Acute (2) Choledocholithiasis: Status: Acute Plan 1/ She certainly appears to have gallstones, stone in CBD on initial imaging but LFT improved a little may have passed. Her pain though is atypical of biliary pain and she has no RUQ tenderness. UA and preg tests are negative. May also be musculoskeletal pain. PLAN: 1/ US abdomen and pelvis r/o toher pathology 2/ if LFT don't improve or ongoing pain and no other etiology found then ERCP 3/ ok to have clears for the meantime Procedures Date of Service Date of Service: 01/10/22
[2022-01-10 15:22] VITALS: BP 114/71; PULSE 73; RESP 14; TEMP 36.7; O2SAT 97
[2022-01-10] MEDS: diphenhydrAMINE HCL 25 MG TABLET PO (18:34)
[2022-01-10 23:23] VITALS: BP 113/56; PULSE 71; RESP 17; TEMP 36.3; O2SAT 98
[2022-01-11] VITALS (9 sets, daily range): BP systolic 103–135; BP diastolic 62–78; PULSE 60–78; RESP 15–20; TEMP 36.2–36.6; O2SAT 95–98
[2022-01-11] MEDS: Dextrose 5 % and 0.45 % NaCl 1,000 ML 100 ML IVCONT (07:09)
[2022-01-11] MEDS: diphenhydrAMINE HCL 25 MG TABLET PO ×2 (08:43→16:10)
[2022-01-11] MEDS: polyethylene glycoL 3350 17 GM POWD.PACK PO (08:43)
[2022-01-11] MEDS: HYDROmorphone HCl 0.5 MG/0.5 ML SYRINGE IVPUSH ×3 (08:45→21:29)
[2022-01-11 09:25] LABS: Estimated Average Glucose 105 mg/dL; Hemoglobin A1c % 5.3 %
[2022-01-11 09:27] LABS: Cholesterol 139 mg/dL; HDL Cholesterol 30 mg/dL; LDL Cholesterol Calculated 83 mg/dl; Triglycerides 133 mg/dL
[2022-01-11 09:44] LABS: Alanine Aminotransferase 140 U/L (0-31); Albumin Level 3.7 g/dL (3.5-5.0); Alkaline Phosphatase 126 U/L (39-117); Aspartate Amino Transferase 87 U/L (5-31); Bilirubin Direct 0.4 mg/dL (0.0-0.5); Bilirubin Total 0.8 mg/dL (0.0-1.0); Total Protein 6.9 g/dL (6.5-8.0)
--- NOTE | 2022-01-11 13:17 | P.PNIM_ITS ---
Subjective Subjective Date of Service: 01/11/22 Interval History: cc: abd pain interval history: failed solid diet Cardiovascular Cardiovascular: Reports no additional cardiovascular complaints Respiratory Respiratory: Reports no additional respiratory complaints Physical Exam Vital Signs: Vital Signs: Last Vital Signs Temp 97.2 F 01/11/22 12:00 Pulse 78 01/11/22 12:00 Resp 16 01/11/22 12:00 BP 135/78 01/11/22 12:00 Pulse Ox 95 01/11/22 12:00 BMI result Body Mass Index 31.3 General: AO X 3, no acute distress Resp: CTA bilateral, no accessory muscles used CVS: S1,S2,RRR GI: soft, non tender, non distended Neuro: motor grossly intact, alert Psych: appropriate affect, appropriate insight Objective Data Active Medications Diphenhydramine HCl (Diphenhydramine Hcl 25 Mg Tablet) 25 mg PO Q4H PRN PRN Reason: allergy Last Admin: 01/11/22 08:43 Dose: 25 mg Documented by: LEVI Hydromorphone HCl (Hydromorphone Hcl 0.5 Mg/0.5 Ml Syringe) 0.5 mg IVPUSH Q4H PRN; Protocol PRN Reason: Pain, Severe (Pain Scale 7-10) Last Admin: 01/11/22 08:45 Dose: 0.5 mg Documented by: LEVI Dextrose/Sodium Chloride (D51/2ns) 1,000 mls @ 100 mls/hr IVCONT .Q10H [facility] Last Admin: 01/11/22 07:09 Dose: 100 mls/hr Documented by: LEVI Multivitamins/Vitamin C (Multivitamin Tablet) 1 tab PO DAILY [facility] Last Admin: 01/11/22 08:52 Dose: Not Given Documented by: LEVI Non-Admin Reason: Patient Refused Ondansetron HCl (Ondansetron Hcl 4 Mg/2 Ml Vial) 4 mg IVPUSH Q8H PRN PRN Reason: Nausea and Vomiting Pharmacy Consult (Consult Rx Perform Med Rec) 1 each MISCELLANE ONCE PRN PRN Reason: Consult order Polyethylene Glycol (Polyethylene Glycol 3350 17 Gm Powd.Pack) 17 gm PO DAILY [facility] Last Admin: 01/11/22 08:43 Dose: 17 gm Documented by: LEVI Senna (Sennosides 8.6 Mg Tablet) 17.2 mg PO BEDTIME PRN PRN Reason: Constipation Sodium Chloride (0.9 % Sodium Chloride Flush 3 Ml Syringe) 3 ml IVFLUSH QSHIFT [facility] Last Admin: 01/11/22 10:38 Dose: Not Given Documented by: LEVI Non-Admin Reason: IV Running Labs CBC & Chem 7: 01/10/22 07:49 01/10/22 07:49 Labs: Laboratory Results - last 24 hr 01/11/22 01/11/22 08:58 08:58 Estimat Average Glucose 105 Hemoglobin A1c % 5.3 Total Bilirubin 0.8 Direct Bilirubin 0.4 AST 87 H ALT 140 H Alkaline Phosphatase 126 H Total Protein 6.9 Albumin 3.7 Triglycerides 133 Cholesterol 139 LDL Cholesterol, Calc 83 HDL Cholesterol 30 Assessment and Plan (1) Constipation: Status: Acute (2) Choledocholithiasis: Status: Acute (3) Transaminitis: Status: Acute (4) Flank pain: Status: Acute Plan 46F presented with abdominal pain, decreased appetite, found to have cbd stone with obstruction. biliary colic pain control, back to clear liquids, eventual surgical eval choledocolithiasis plan for MRCP tomorrow monitor LFTS transaminitis likely due to steatohepatitis, vs passed cbd stone monitor steatohepatitis suyspect NAFLD denies ETOH, follow up viral hepatitis panel obesity has already had significant weight loss (likely contributing to gallstones), should continue diet/exercise dvt ppx: changed to lovenox full code reason for continued hospitalization:plan for mrcp and possible ercp if stone still present Quality Stroke Does the patient have a stroke diagnosis?: No VTE Prior VTE?: No VTE Risk Level:: Medical - moderate - high VTE Device Contraindication: Treatment Not Indicated VTE Drug Contraindication: N/A - Med Ordered
--- NOTE | 2022-01-11 14:00 | PM.GIPN ---
Subjective Subjective Date of Service: 01/11/22 Interval History: still has pain in the right flank area, with some nausea, no vomiting wants to try to eat US with nml CBD, gallstones seen, fludi around GB and small fibroid with hepatic stestosis Critical Care Time (minutes): 0 Physical Exam Vital Signs: Vital Signs: Last Vital Signs Temp 97.2 F 01/11/22 12:00 Pulse 78 01/11/22 12:00 Resp 16 01/11/22 12:00 BP 135/78 01/11/22 12:00 Pulse Ox 95 01/11/22 12:00 BMI result Body Mass Index 31.3 EXAM: GENERAL: The patient is well developed and nontoxic. VITAL SIGNS:see workflow HEENT: Nonicteric sclerae, PERRLA, EOMI. Oropharynx clear. Moist mucous membranes. Conjunctivae appear well perfused. No thyroid mass. CHEST: Chest wall is nontender. HEART: Regular rate and rhythm without murmurs. LUNGS: Clear to auscultation bilaterally. ABDOMEN: Soft, positive bowel sounds, mildly tender RUQ, tender right flank, no organomegaly.no flank tenderness SKIN: No rash, no excessive bruising, petechiae, or purpura. NEUROLOGIC: Cranial nerves II-XII intact without motor/sensory deficit. Objective Data Labs CBC & Chem 7: 01/10/22 07:49 01/10/22 07:49 Labs: Laboratory Results - last 24 hr 01/11/22 01/11/22 08:58 08:58 Estimat Average Glucose 105 Hemoglobin A1c % 5.3 Total Bilirubin 0.8 Direct Bilirubin 0.4 AST 87 H ALT 140 H Alkaline Phosphatase 126 H Total Protein 6.9 Albumin 3.7 Triglycerides 133 Cholesterol 139 LDL Cholesterol, Calc 83 HDL Cholesterol 30 Procedures Date of Service Date of Service: 01/11/22 Progress Note: A&P Assessment and plan (1) Gallstones: Status: Acute (2) Hepatic steatosis: Status: Acute Plan 1/ flank pain and RUQ tenderness prob related to gallstones, uncertain if she has a CBD stone or not and whether she needs an ERCP PLAN: 1/ she is agreeable to having MRCP now, she is ok trying sedation which she thinks will help her, if CBD stones confirmed then ErCp Time Spent With Patient Time: Total time spent is greater than 50% in coordination of care (as documented) at patient's floor/unit and/or counseling patient: Quality Stroke Does the patient have a stroke diagnosis?: No VTE Prior VTE?: No VTE Risk Level:: Medical - moderate - high VTE Device Contraindication: Treatment Not Indicated VTE Drug Contraindication: N/A - Med Ordered
[2022-01-11] MEDS: Enoxaparin Sodium 40 MG/0.4 ML SYRINGE SUBCUT (14:19)
--- NOTE | 2022-01-11 15:12 | MHC.CM.PN ---
PATIENT LIVES WITH SPOUSE AND FAMILY SHE HAS NO DME OR VNA SERVICES IN THE HOME NO PCP BUT WOULD LIKE TO SECURE ONE ON CAMPUS CASE MANAGEMENT CAN PROVIDE A LIST OF PCP OFFICES. NOT VACCINATED AGAINST COVID-19 AND NEVER HAD COVID. PLAN IS HOME - SELF CARE
[2022-01-11] MEDS: 0.9 % Sodium Chloride Flush 3 ML SYRINGE IVFLUSH ×2 (16:11→23:50)
[2022-01-11] MEDS: Famotidine 20 MG TABLET PO (21:30)
[2022-01-12 03:41] VITALS: BP 112/58; PULSE 82; RESP 18; TEMP 36.3; O2SAT 96
[2022-01-12] MEDS: 0.9 % Sodium Chloride Flush 3 ML SYRINGE IVFLUSH (07:32)
[2022-01-12] MEDS: HYDROmorphone HCl 0.5 MG/0.5 ML SYRINGE IVPUSH ×4 (07:32→20:27)
[2022-01-12] MEDS: Multivitamin TABLET 1 TAB PO (07:35)
[2022-01-12 07:42] VITALS: BP 109/70; PULSE 73; RESP 18; TEMP 36.3; O2SAT 98
[2022-01-12] MEDS: diphenhydrAMINE HCL 25 MG TABLET PO (08:03)
[2022-01-12 08:11] LABS: HBc Num1 0.47 S/CO (0.00-0.79); HBsAGNum1 0.23 S/CO (0.00-0.99); Hepatitis B Core Antibody Nonreactive (Nonreactive); Hepatitis B Surface Antigen Negative (Negative); ~HepC Num1 0.23 S/CO (0.00-0.79); ~Hepatitis B Surface Antibody REACTIVE (Nonreactive); ~Hepatitis C Antibody Nonreactive (Nonreactive)
[2022-01-12 09:43] LABS: Hematocrit 41.7 % (37.0-47.0); Hemoglobin 13.9 g/dl (12.0-16.0); Mean Corpuscular HGB Conc 33.3 g/dl (31.0-35.0); Mean Corpuscular Hemoglobin 29.6 pg (27.0-33.0); Mean Corpuscular Volume 88.9 fL (80.0-98.0); Mean Platelet Volume 9.8 fL (9.4-12.3); Platelet Count 232 X10*3/uL (160-400); Red Blood Count 4.69 X10*6/uL (4.20-5.50); Red Cell Distribution Width 13.6 % (11.0-16.0); White Blood Count 4.3 X10*3/uL (4.8-10.8)
[2022-01-12 10:10] LABS: Alanine Aminotransferase 429 U/L (0-31); Albumin Level 3.7 g/dL (3.5-5.0); Alkaline Phosphatase 200 U/L (39-117); Anion Gap 12 (12-20); Aspartate Amino Transferase 280 U/L (5-31); Blood Urea Nitrogen 5 mg/dL (9-16); Calcium 9.2 mg/dL (8.4-10.2); Carbon Dioxide 25 mmol/L (22-29); Chloride 106 mmol/L (96-108); Creatinine Clr Calc Pharmacy 97.2; Estimated Glomerular Filt Rate > 60; Glucose Fasting 90 mg/dL (60-99); Potassium 3.7 mmol/L (3.3-5.1); Sodium 139 mmol/L (135-145)
[2022-01-12] MEDS: LORazepam 2 MG/ML VIAL 1 MG IVPUSH (12:00)
--- NOTE | 2022-01-12 12:37 | HO.PM.IMPN ---
Subjective Subjective Date of Service: 01/12/22 Interval History: Anxious re: MRI. C/o ongoing RUQ pain dieudonne with eating. No fever. Review of Systems Review of Systems: Yes all other systems are reviewed and are negative Physical Exam Vital Signs: Vital Signs: Last Vital Signs Temp 97.3 F 01/12/22 07:42 Pulse 73 01/12/22 07:42 Resp 18 01/12/22 07:42 BP 109/70 01/12/22 07:42 Pulse Ox 98 01/12/22 07:42 BMI result Body Mass Index 31.3 Gen: in no acute distress HEENT: sclera anicteric, moist mucus membranes Neck: supple Lungs: clear to auscultation bilaterally Heart: regular rate and rhythm, no murmurs Abd: soft, obese, RUQ tender Ext: no edema Skin: warm/well-perfused Neuro: alert and oriented x3, no focal findings Psych: appropriate affect Objective Data Active Medications Diphenhydramine HCl (Diphenhydramine Hcl 25 Mg Tablet) 25 mg PO Q4H PRN PRN Reason: allergy Last Admin: 01/12/22 08:03 Dose: 25 mg Documented by: SANDER Enoxaparin Sodium (Enoxaparin Sodium 40 Mg/0.4 Ml Syringe) 40 mg SUBCUT Q24H [facility] Last Admin: 01/11/22 14:19 Dose: 40 mg Documented by: CHRISTIAN Famotidine (Famotidine 20 Mg Tablet) 20 mg PO BEDTIME [facility] Last Admin: 01/11/22 21:30 Dose: 20 mg Documented by: OXANA Hydromorphone HCl (Hydromorphone Hcl 0.5 Mg/0.5 Ml Syringe) 0.5 mg IVPUSH Q4H PRN; Protocol PRN Reason: Pain, Severe (Pain Scale 7-10) Last Admin: 01/12/22 10:40 Dose: 0.5 mg Documented by: SANDER Comments: Dr. Cuco cruz to give dose early Multivitamins/Vitamin C (Multivitamin Tablet) 1 tab PO DAILY [facility] Last Admin: 01/12/22 07:35 Dose: 1 tab Documented by: SANDER Ondansetron HCl (Ondansetron Hcl 4 Mg/2 Ml Vial) 4 mg IVPUSH Q8H PRN PRN Reason: Nausea and Vomiting Pharmacy Consult (Consult Rx Perform Med Rec) 1 each MISCELLANE ONCE PRN PRN Reason: Consult order Polyethylene Glycol (Polyethylene Glycol 3350 17 Gm Powd.Pack) 17 gm PO DAILY [facility] Last Admin: 01/12/22 07:36 Dose: Not Given Documented by: SANDER Non-Admin Reason: NPO Senna (Sennosides 8.6 Mg Tablet) 17.2 mg PO BEDTIME PRN PRN Reason: Constipation Sodium Chloride (0.9 % Sodium Chloride Flush 3 Ml Syringe) 3 ml IVFLUSH QSHIFT [facility] Last Admin: 01/12/22 07:32 Dose: 3 ml Documented by: SANDER Labs CBC & Chem 7: 01/12/22 09:26 01/12/22 09:26 Labs: Laboratory Results - last 24 hr 01/09/22 01/12/22 01/12/22 14:36 09:26 09:26 MCV 88.9 MCH 29.6 MCHC 33.3 RDW 13.6 Plt Count 232 MPV 9.8 Absolute Nucleated RBC 0.000 Nucleated RBC % (auto) 0.0 Anion Gap 12 Estim Creat Clear Calc 97.2 Estimated GFR > 60 Fasting Glucose 90 Calcium 9.2 D Total Bilirubin 3.0 H Direct Bilirubin 2.0 H AST 280 H ALT 429 H Alkaline Phosphatase 200 H D Total Protein 7.0 Albumin 3.7 Hep Bs Antigen Negative Hep Bs Antibody REACTIVE Hep B Core Total Ab Nonreactive Hepatitis C Ab (EIA) Nonreactive Assessment and Plan (1) Constipation: Status: Acute (2) Choledocholithiasis: Status: Acute (3) Transaminitis: Status: Acute (4) Flank pain: Status: Acute Plan hospital d#3 46yo F with obesity presenting with RUQ pain, found to have CBD stone # choledocholithiasis # biliary colic - GI suggested ERCP but pt refused, MRCP pending with lorazepam premedication - will need surg consult for lap mery after CBD stone is extracted - clear liquid diet, IV hydromorphone for pain control # NAFLD # obesity - weight loss/exercise # VTE ppx - LMWH In my clinical judgment, the patient requires continued hospitalization for the following reasons: need for ERCP, lap mery Quality Stroke Does the patient have a stroke diagnosis?: No VTE Prior VTE?: No VTE Risk Level:: Medical - moderate - high VTE Device Contraindication: Treatment Not Indicated VTE Drug Contraindication: N/A - Med Ordered
[2022-01-12] MEDS: Enoxaparin Sodium 40 MG/0.4 ML SYRINGE SUBCUT (14:34)
[2022-01-12] MEDS: Lactated Ringers 1,000 ML 50 ML IVCONT (14:34)
[2022-01-12 15:58] VITALS: BP 123/83; PULSE 85; RESP 15; TEMP 36.2; O2SAT 98
--- NOTE | 2022-01-12 16:15 | PC.NURSE ---
Patient refusing to take wheelchair and elevator down to MRI. Transporters were uncomfortable taking patient down stairs. Real Estate Intern Bina and Tyree aware. Tyree escorted patient down to MRI and back.
[2022-01-12 19:57] VITALS: BP 113/60; PULSE 75; RESP 14; TEMP 36.5; O2SAT 95
[2022-01-12] MEDS: Famotidine 20 MG TABLET PO (20:20)
[2022-01-12] MEDS: Acetaminophen 325 MG TABLET 650 MG PO (20:21)
[2022-01-12 23:56] VITALS: BP 119/62; PULSE 63; RESP 17; TEMP 36.2; O2SAT 95
[2022-01-13] VITALS (11 sets, daily range): BP systolic 105–144; BP diastolic 55–84; PULSE 56–96; RESP 16–18; TEMP 36.2–37; O2SAT 94–100
[2022-01-13 07:32] LABS: Alanine Aminotransferase 314 U/L (0-31); Albumin Level 3.5 g/dL (3.5-5.0); Alkaline Phosphatase 177 U/L (39-117); Anion Gap 13 (12-20); Aspartate Amino Transferase 129 U/L (5-31); Bilirubin Total 0.8 mg/dL (0.0-1.0); Blood Urea Nitrogen 4 mg/dL (9-16); Calcium 8.9 mg/dL (8.4-10.2); Carbon Dioxide 24 mmol/L (22-29); Chloride 105 mmol/L (96-108); Creatinine Clr Calc Pharmacy 107.1; Estimated Glomerular Filt Rate > 60; Glucose Random 91 mg/dL (60-115); Potassium 3.6 mmol/L (3.3-5.1); Sodium 138 mmol/L (135-145); Total Protein 6.6 g/dL (6.5-8.0)
[2022-01-13] MEDS: diphenhydrAMINE HCL 25 MG TABLET PO ×2 (07:37→15:19)
[2022-01-13] MEDS: HYDROmorphone HCl 0.5 MG/0.5 ML SYRINGE IVPUSH ×2 (07:37→11:43)
[2022-01-13] MEDS: 0.9 % Sodium Chloride Flush 3 ML SYRINGE IVFLUSH (07:47)
[2022-01-13] MEDS: ondansetron HCL 4 MG/2 ML VIAL IVPUSH (08:01)
[2022-01-13 09:29] LABS: Hepatitis A Antibody IgM 0.09 Index (0-0.79); ~Hepatitis A Antibody IgM Nonreactive (Nonreactive)
[2022-01-13] MEDS: Lactated Ringers 1,000 ML 50 ML IVCONT (10:34)
[2022-01-13] MEDS: Famotidine/PF 20 MG/2 ML VIAL IVPUSH ×2 (11:43→21:38)
--- NOTE | 2022-01-13 11:52 | HO.PM.IMPN ---
Subjective Subjective Date of Service: 01/13/22 Interval History: ongoing RUQ pain no fever NPO for ERCP Review of Systems Review of Systems: Yes all other systems are reviewed and are negative Physical Exam Vital Signs: Vital Signs: Last Vital Signs Temp 97.5 F 01/13/22 11:42 Pulse 75 01/13/22 11:42 Resp 18 01/13/22 11:42 BP 127/64 01/13/22 11:42 Pulse Ox 97 01/13/22 11:42 BMI result Body Mass Index 31.3 Gen: in no acute distress HEENT: sclera anicteric, moist mucus membranes Neck: supple Lungs: clear to auscultation bilaterally Heart: regular rate and rhythm, no murmurs Abd: soft, obese, RUQ tender Ext: no edema Skin: warm/well-perfused Neuro: alert and oriented x3, no focal findings Psych: appropriate affect Objective Data Active Medications Diphenhydramine HCl (Diphenhydramine Hcl 25 Mg Tablet) 25 mg PO Q4H PRN PRN Reason: allergy Last Admin: 01/13/22 07:37 Dose: 25 mg Documented by: SANDER Enoxaparin Sodium (Enoxaparin Sodium 40 Mg/0.4 Ml Syringe) 40 mg SUBCUT Q24H [facility] Last Admin: 01/13/22 11:33 Dose: Not Given Documented by: SANDER Non-Admin Reason: preop Famotidine (Famotidine/Pf 20 Mg/2 Ml Vial) 20 mg IVPUSH BID [facility] Last Admin: 01/13/22 11:43 Dose: 20 mg Documented by: SANDER Hydromorphone HCl (Hydromorphone Hcl 0.5 Mg/0.5 Ml Syringe) 0.5 mg IVPUSH Q4H PRN; Protocol PRN Reason: Pain, Severe (Pain Scale 7-10) Last Admin: 01/13/22 11:43 Dose: 0.5 mg Documented by: SANDER Lactated Ringer's (Lr) 1,000 mls @ 50 mls/hr IVCONT .Q20H [facility] Last Admin: 01/13/22 10:34 Dose: 50 mls/hr Documented by: SANDER Multivitamins/Vitamin C (Multivitamin Tablet) 1 tab PO DAILY [facility] Last Admin: 01/13/22 07:51 Dose: Not Given Documented by: SANDER Non-Admin Reason: NPO Ondansetron HCl (Ondansetron Hcl 4 Mg/2 Ml Vial) 4 mg IVPUSH Q8H PRN PRN Reason: Nausea and Vomiting Last Admin: 01/13/22 08:01 Dose: 4 mg Documented by: SANDER Pharmacy Consult (Consult Rx Perform Med Rec) 1 each MISCELLANE ONCE PRN PRN Reason: Consult order Polyethylene Glycol (Polyethylene Glycol 3350 17 Gm Powd.Pack) 17 gm PO DAILY [facility] Last Admin: 01/13/22 07:51 Dose: Not Given Documented by: SANDER Non-Admin Reason: NPO Senna (Sennosides 8.6 Mg Tablet) 17.2 mg PO BEDTIME PRN PRN Reason: Constipation Sodium Chloride (0.9 % Sodium Chloride Flush 3 Ml Syringe) 3 ml IVFLUSH QSHIFT [facility] Last Admin: 01/13/22 07:47 Dose: 3 ml Documented by: SANDER Labs CBC & Chem 7: 01/12/22 09:26 01/13/22 06:15 Labs: Laboratory Results - last 24 hr 01/09/22 01/13/22 14:36 06:15 Anion Gap 13 Estim Creat Clear Calc 107.1 Estimated GFR > 60 Random Glucose 91 Calcium 8.9 Total Bilirubin 0.8 AST 129 H ALT 314 H Alkaline Phosphatase 177 H Total Protein 6.6 Albumin 3.5 Hepatitis A IgM Ab Nonreactive Cholangiopancreatography MRI 01/12/22 13:23 IMPRESSION: 1. Persistent 0.2 cm filling defect distally in the common bile duct on several sequences suggests choledocholithiasis. No significant biliary ductal dilatation is seen. No significant gallbladder abnormality as well. 2. Small right hepatic cyst and shows benign features. Assessment and Plan (1) Constipation: Status: Acute (2) Choledocholithiasis: Status: Acute (3) Transaminitis: Status: Acute (4) Flank pain: Status: Acute Plan hospital d#4 46yo F with obesity presenting with RUQ pain, found to have CBD stone # choledocholithiasis # biliary colic - NPO for ERCP today - will need surg consult for lap mery after CBD stone is extracted - continue IV hydromorphone for pain control # NAFLD # obesity - weight loss/exercise # VTE ppx - LMWH In my clinical judgment, the patient requires continued hospitalization for the following reasons: ERCP, lap mrey Quality Stroke Does the patient have a stroke diagnosis?: No VTE Prior VTE?: No VTE Risk Level:: Medical - moderate - high VTE Device Contraindication: Treatment Not Indicated VTE Drug Contraindication: N/A - Med Ordered
--- NOTE | 2022-01-13 12:34 | MHC.CM.PN ---
PER MULTIDISCIPLINARY ROUNDS PT TO HAVE ERCP TODAY AND ANTIC JAYDEN CANDELARIA PRIOR TO D/C, ANTIC D/C IN APPROX DAYS, CM WILL CONT TO FOLLOW D/C NEEDS.
--- NOTE | 2022-01-13 15:08 | MHC.SHP ---
Pre-Procedural Eval Section A Date of Service: 01/13/22 The patient is an INPATIENT: Yes The History & Physical has been completed within 30 days and I have reviewed it.: Yes Section B Chief Complaint: choledocholithiasis,transaminitis Allergies: Allergies Allergy/AdvReac Type Severity Reaction Status Date / Time ibuprofen [From Motrin] Allergy Hives Verified 01/09/22 14:13 back medicin Allergy Hives Uncoded 01/09/22 14:13 Plan Diagnosis/Plan: Unchanged I have reviewed the history and physical and performed a pertinent physical examination on my patient. No changes have occurred unless specified.ERCP
--- NOTE | 2022-01-13 16:07 | HO.ANESPROP2 ---
HPI - Anesthesia Eval Consult details Narrative: 46 F for ERCP neck pain , chronic back pain , PTSD . [facility] Active Problems Active Problems: All Active Problems (Updated 01/11/22 @ 09:59 by Crow Alarcon MD) Gallstones (Acute) Hepatic steatosis (Acute) Flank pain (Acute) Transaminitis (Acute) Constipation (Acute) Choledocholithiasis (Acute) Past Medical History Medical History (Updated 01/13/22 @ 16:26 by Morenita Breaux RN) Constipation Gallstones Gestational diabetes Heart murmur Hepatic steatosis Neck pain PTSD (post-traumatic stress disorder) Family History Family history of problems with anesthesia: No Surgical History Surgical History (Updated 01/13/22 @ 16:25 by Morenita Breaux RN) H/O tubal ligation History of Problems with Anesthesia: No Social History Social History (Updated 01/10/22 @ 14:36 by Aly Craig MD) Household Members: Spouse and Children Housing: Other Housing Other:: longterm Alcohol intake: never Patient Tobacco Use Status: Never used Tobacco Patient Interested in Nicotine Replacement: No Second Hand Smoke Exposure: No Use of substances other than those prescribed or required for medical reasons: No Currently Displaying Signs/Symptoms of Drug Intoxication Withdrawal: No Any prior treatment program specific to substance use: No Have you been hit, kicked, punched, or otherwise hurt by someone within the past year? If so, by whom?: No Do you feel safe in your current relationship?: Yes Is there a partner from a previous relationship who is making you feel unsafe now?: No Are you made to feel afraid or neglected: No Are you DNR?: No Advance Directives: No Advance Directives Information Provided: No Advance Directives on File: No Do you have thoughts of harming others: None Do you have a plan to hurt others: No Plan Recently lost weight without trying: No Eating poorly because of decreased appetite: Yes Nutrition Risks: No Nutritional Risk Patient : No : No Poor oral hygiene: No service: No Current occupational status: unemployed Meds Allergies Allergy/AdvReac Type Severity Reaction Status Date / Time ibuprofen [From Motrin] Allergy Hives Verified 01/09/22 14:13 NSAIDS (Non-Steroidal Allergy Hives Verified 01/13/22 16:24 Anti-Inflamma back medicin Allergy Hives Uncoded 01/09/22 14:13 Active Medications: Current Medications Diphenhydramine HCl (Diphenhydramine Hcl 25 Mg Tablet) 25 mg PO Q4H PRN PRN Reason: allergy Last Admin: 01/13/22 15:19 Dose: 25 mg Documented by: Enoxaparin Sodium (Enoxaparin Sodium 40 Mg/0.4 Ml Syringe) 40 mg SUBCUT Q24H [facility] Last Admin: 01/13/22 11:33 Dose: Not Given Documented by: Famotidine (Famotidine/Pf 20 Mg/2 Ml Vial) 20 mg IVPUSH BID [facility] Last Admin: 01/13/22 11:43 Dose: 20 mg Documented by: Hydromorphone HCl (Hydromorphone Hcl 0.5 Mg/0.5 Ml Syringe) 0.5 mg IVPUSH Q4H PRN; Protocol PRN Reason: Pain, Severe (Pain Scale 7-10) Last Admin: 01/13/22 11:43 Dose: 0.5 mg Documented by: Lactated Ringer's (Lr) 1,000 mls @ 50 mls/hr IVCONT .Q20H [facility] Last Admin: 01/13/22 10:34 Dose: 50 mls/hr Documented by: Multivitamins/Vitamin C (Multivitamin Tablet) 1 tab PO DAILY [facility] Last Admin: 01/13/22 07:51 Dose: Not Given Documented by: Ondansetron HCl (Ondansetron Hcl 4 Mg/2 Ml Vial) 4 mg IVPUSH Q8H PRN PRN Reason: Nausea and Vomiting Last Admin: 01/13/22 08:01 Dose: 4 mg Documented by: Pharmacy Consult (Consult Rx Perform Med Rec) 1 each MISCELLANE ONCE PRN PRN Reason: Consult order Polyethylene Glycol (Polyethylene Glycol 3350 17 Gm Powd.Pack) 17 gm PO DAILY [facility] Last Admin: 01/13/22 07:51 Dose: Not Given Documented by: Senna (Sennosides 8.6 Mg Tablet) 17.2 mg PO BEDTIME PRN PRN Reason: Constipation Sodium Chloride (0.9 % Sodium Chloride Flush 3 Ml Syringe) 3 ml IVFLUSH QSHIFT [facility] Last Admin: 01/13/22 07:47 Dose: 3 ml Documented by: Home Medications Medication Instructions Recorded Confirmed Last Taken Type multivitamin 1 tab PO DAILY 05/01/09/22 01/08/22 History Exam Exam Date and Time: January 13, 2022 1607 Height,Weight and Vital Signs: Height 5 ft 4 in Weight 82.7 kg Last Vital Signs Temp 97.5 F 01/13/22 11:42 Pulse 75 01/13/22 11:42 Resp 18 01/13/22 11:42 BP 127/64 01/13/22 11:42 Pulse Ox 97 01/13/22 11:42 Pertinent Lab Results Pertinent Lab Results: Laboratory Tests 01/09/22 01/09/22 01/09/22 14:36 14:36 14:36 WBC 6.3 RBC 4.76 Hgb 13.9 Hct 42.3 MCV 88.9 MCH 29.2 MCHC 32.9 RDW 13.5 Plt Count 281 MPV 9.5 Immature Gran % (Auto) 0.0 Neut % (Auto) 69.0 Lymph % (Auto) 23.5 [place] % (Auto) 6.9 Eos % (Auto) 0.3 Baso % (Auto) 0.3 Lymph # (Auto) 1.5 [place] # (Auto) 0.4 Eos # (Auto) 0.0 Baso # (Auto) 0.0 Abs Immat Gran (auto) 0.00 Absolute Neuts (auto) 4.3 Absolute Nucleated RBC 0.000 Nucleated RBC % (auto) 0.0 Sodium 142 Potassium 3.9 Chloride 108 Carbon Dioxide 27 Anion Gap 11 L BUN 6 L Creatinine 0.78 Estim Creat Clear Calc 94.7 Estimated GFR > 60 Random Glucose 107 Fasting Glucose Estimat Average Glucose Hemoglobin A1c % Calcium 9.6 Total Bilirubin 0.5 Direct Bilirubin 0.2 AST 72 H ALT 134 H Alkaline Phosphatase 119 H Total Protein 7.5 Albumin 4.1 Triglycerides Cholesterol LDL Cholesterol, Calc HDL Cholesterol Lipase 26 Urine Color Urine Appearance Urine pH Ur Specific [place] Urine Protein Urine Glucose (UA) Urine Ketones Urine Blood Urine Nitrite Ur Leukocyte Esterase Urine Test COVID-19 (BUCK) COVID-19 Clin Com Hepatitis A IgM Ab Nonreactive Hep Bs Antigen Negative Hep Bs Antibody REACTIVE Hep B Core Total Ab Nonreactive Hepatitis C Ab (EIA) Nonreactive 01/09/22 01/09/22 01/10/22 16:15 16:15 05:03 WBC RBC Hgb Hct MCV MCH MCHC RDW Plt Count MPV Immature Gran % (Auto) Neut % (Auto) Lymph % (Auto) [place] % (Auto) Eos % (Auto) Baso % (Auto) Lymph # (Auto) [place] # (Auto) Eos # (Auto) Baso # (Auto) Abs Immat Gran (auto) Absolute Neuts (auto) Absolute Nucleated RBC Nucleated RBC % (auto) Sodium Potassium Chloride Carbon Dioxide Anion Gap BUN Creatinine Estim Creat Clear Calc Estimated GFR Random Glucose Fasting Glucose Estimat Average Glucose Hemoglobin A1c % Calcium Total Bilirubin Direct Bilirubin AST ALT Alkaline Phosphatase Total Protein Albumin Triglycerides Cholesterol LDL Cholesterol, Calc HDL Cholesterol Lipase Urine Color YELLOW Urine Appearance CLEAR Urine pH 6.0 Ur Specific [place] <= 1.005 Urine Protein NEG Urine Glucose (UA) NEG Urine Ketones NEG Urine Blood NEG Urine Nitrite NEG Ur Leukocyte Esterase NEG Urine Test NEGATIVE COVID-19 ([facility]CK) Negative COVID-19 Clin Com See Note Hepatitis A IgM Ab Hep Bs Antigen Hep Bs Antibody Hep B Core Total Ab Hepatitis C Ab (EIA) 01/10/22 01/10/22 01/10/22 07:49 07:49 07:49 WBC 5.6 RBC 4.37 Hgb 12.6 Hct 38.8 MCV 88.8 MCH 28.8 MCHC 32.5 RDW 13.6 Plt Count 217 MPV 10.0 Immature Gran % (Auto) 0.0 Neut % (Auto) 56.3 Lymph % (Auto) 33.6 [place] % (Auto) 8.6 Eos % (Auto) 1.3 Baso % (Auto) 0.2 Lymph # (Auto) 1.9 [place] # (Auto) 0.5 Eos # (Auto) 0.1 Baso # (Auto) 0.0 Abs Immat Gran (auto) 0.00 Absolute Neuts (auto) 3.2 Absolute Nucleated RBC 0.000 Nucleated RBC % (auto) 0.0 Sodium 138 Potassium 4.4 Chloride 108 Carbon Dioxide 23 Anion Gap 11 L BUN 5 L Creatinine 0.66 Estim Creat Clear Calc 111.9 Estimated GFR > 60 Random Glucose 119 H Fasting Glucose Estimat Average Glucose Hemoglobin A1c % Calcium 8.5 D Total Bilirubin 0.5 Cancelled Direct Bilirubin 0.2 Cancelled AST 73 H Cancelled ALT 124 H Cancelled Alkaline Phosphatase 106 Cancelled Total Protein 6.6 Cancelled Albumin 3.4 L Cancelled Triglycerides Cholesterol LDL Cholesterol, Calc HDL Cholesterol Lipase Urine Color Urine Appearance Urine pH Ur Specific [place] Urine Protein Urine Glucose (UA) Urine Ketones Urine Blood Urine Nitrite Ur Leukocyte Esterase Urine Test COVID-19 (BUCK) COVID-19 Clin Com Hepatitis A IgM Ab Hep Bs Antigen Hep Bs Antibody Hep B Core Total Ab Hepatitis C Ab (EIA) 01/11/22 01/11/22 01/12/22 08:58 08:58 09:26 WBC 4.3 L RBC 4.69 Hgb 13.9 Hct 41.7 MCV 88.9 MCH 29.6 MCHC 33.3 RDW 13.6 Plt Count 232 MPV 9.8 Immature Gran % (Auto) Neut % (Auto) Lymph % (Auto) [place] % (Auto) Eos % (Auto) Baso % (Auto) Lymph # (Auto) [place] # (Auto) Eos # (Auto) Baso # (Auto) Abs Immat Gran (auto) Absolute Neuts (auto) Absolute Nucleated RBC 0.000 Nucleated RBC % (auto) 0.0 Sodium Potassium Chloride Carbon Dioxide Anion Gap BUN Creatinine Estim Creat Clear Calc Estimated GFR Random Glucose Fasting Glucose Estimat Average Glucose 105 Hemoglobin A1c % 5.3 Calcium Total Bilirubin 0.8 Direct Bilirubin 0.4 AST 87 H ALT 140 H Alkaline Phosphatase 126 H Total Protein 6.9 Albumin 3.7 Triglycerides 133 Cholesterol 139 LDL Cholesterol, Calc 83 HDL Cholesterol 30 Lipase Urine Color Urine Appearance Urine pH Ur Specific [place] Urine Protein Urine Glucose (UA) Urine Ketones Urine Blood Urine Nitrite Ur Leukocyte Esterase Urine Test COVID-19 ([facility]) COVID-19 Clin Com Hepatitis A IgM Ab Hep Bs Antigen Hep Bs Antibody Hep B Core Total Ab Hepatitis C Ab (EIA) 01/12/22 01/13/22 09:26 06:15 WBC RBC Hgb Hct MCV MCH MCHC RDW Plt Count MPV Immature Gran % (Auto) Neut % (Auto) Lymph % (Auto) [place] % (Auto) Eos % (Auto) Baso % (Auto) Lymph # (Auto) [place] # (Auto) Eos # (Auto) Baso # (Auto) Abs Immat Gran (auto) Absolute Neuts (auto) Absolute Nucleated RBC Nucleated RBC % (auto) Sodium 139 138 Potassium 3.7 3.6 Chloride 106 105 Carbon Dioxide 25 24 Anion Gap 12 13 BUN 5 L 4 L Creatinine 0.76 0.69 Estim Creat Clear Calc 97.2 107.1 Estimated GFR > 60 > 60 Random Glucose 91 Fasting Glucose 90 Estimat Average Glucose Hemoglobin A1c % Calcium 9.2 D 8.9 Total Bilirubin 3.0 H 0.8 Direct Bilirubin 2.0 H AST 280 H 129 H ALT 429 H 314 H Alkaline Phosphatase 200 H D 177 H Total Protein 7.0 6.6 Albumin 3.7 3.5 Triglycerides Cholesterol LDL Cholesterol, Calc HDL Cholesterol Lipase Urine Color Urine Appearance Urine pH Ur Specific [place] Urine Protein Urine Glucose (UA) Urine Ketones Urine Blood Urine Nitrite Ur Leukocyte Esterase Urine Test COVID-19 ([facility]) COVID-19 Clin Com Hepatitis A IgM Ab Hep Bs Antigen Hep Bs Antibody Hep B Core Total Ab Hepatitis C Ab (EIA) Airway Mallampati Class: III TM Dist: >3cm Neck ROM: Full Loose/Missing/Broken Teeth: Yes (Chipped teeth) Heart: S1 , S2 Lungs: b/l breath sounds Assessment and Plan Assessment Anesthesia Assessment: Anesthesia Plan Discussed and Chart Reviewed Final Anesthetic Review Family History of Problems with Anesthesia: No History of Problems with Anesthesia: No NPO: Yes ASA Class: II Final Preanesthetic Review: Meds/Allgs Chart Reviewed, Consent Obtained/Reviewed and Anes Risks/Benef Reviewed Patient Risk: Intermediate Procedure Risk: Intermediate Anesthetic Plan Anesthetic Plan: GA Disposition: Inp. Admit - Standard Bed
--- NOTE | 2022-01-13 16:09 | PC.NURSE ---
patient walked to OR with and OR staff for procedure
--- NOTE | 2022-01-13 17:52 | P.OP_ITS ---
Operative Note Operative Note Date of Service: 01/13/22 Narrative: Description: Endoscopic retrograde cholangiopancreatography (ERCP) PROCEDURE: Endoscopic retrograde cholangiopancreatography with sphincterotomy and balloon extraction/sweep INDICATION FOR THE PROCEDURE: Patient with a history of acute on chronic abdominal pain and imaging revealing CBD stone and gallstones MEDICATIONS: General anesthesia, rectal indomethacin 100 mg, cefotetan 1 g IV The risks of the procedure were made aware to the patient and consisted of medication reaction, bleeding, perforation, aspiration, and post ERCP pancreatitis. DESCRIPTION OF PROCEDURE: After informed consent and appropriate sedation, the duodenoscope was inserted into the oropharynx, down the esophagus, and into the stomach. The scope was then advanced through the pylorus to the ampulla. The ampulla had a normal appearance. The tome was angled and the wire went up easily, a small amount of dye was injected and the wire appeared to be in the PD. A michael precut was then done and the tome angled slightly higher. The wire t hen went into the CBD. cholangiogram was done and there was a suspected filling defect in distal CBD> A 10-12 mm sphincterotomy was performed. Balloon sweeps were done and small amounts of sludge and debris came out. An occlusion cholangiogram was done and the duct looked clear, the gallbladder did not fill with contrast There was some minor oozing which had ceased by the end of the procedure. The stomach was then decompressed and the endoscope was withdrawn. FINDINGS: 1. Filling defect distal CBD, debris and sludge 2. Possible chronic cholecystitis, GB did not fill. RECOMMENDATIONS: 1. NPO except ice chips for next 4-6 hrs then clears as tolerated, can advance diet tomorrow if feels well 2. f/u with surgery team.
--- NOTE | 2022-01-13 17:52 | PM.OP ---
Brief Operative Note Date of Service: 01/13/22 Pre-op diagnosis: choledocholithiasis Post-op diagnosis: same Procedure: see op note Surgeon: Aly Craig MD Anesthesia: GETA Was an Software Design Manager used for this Procedure?: No Estimated blood loss (mL): 0 Condition: stable Disposition: PACU
[2022-01-14] VITALS (7 sets, daily range): BP systolic 94–129; BP diastolic 54–72; PULSE 56–82; RESP 18–20; TEMP 35.8–36.5; O2SAT 93–99
[2022-01-14] MEDS: Acetaminophen 325 MG TABLET 650 MG PO (00:43)
[2022-01-14] MEDS: HYDROmorphone HCl 0.5 MG/0.5 ML SYRINGE IVPUSH ×5 (00:48→22:02)
[2022-01-14] MEDS: diphenhydrAMINE HCL 50 MG/ML VIAL 25 MG IVPUSH (03:55)
[2022-01-14] MEDS: Lactated Ringers 1,000 ML 50 ML IVCONT (06:37)
[2022-01-14 06:53] LABS: Hematocrit 39.5 % (37.0-47.0); INTERNATIONAL NORM RATIO 1.1 (0.9-1.1); Mean Corpuscular HGB Conc 32.9 g/dl (31.0-35.0); Mean Corpuscular Hemoglobin 28.8 pg (27.0-33.0); Mean Corpuscular Volume 87.6 fL (80.0-98.0); Platelet Count 244 X10*3/uL (160-400); Prothrombin Time 12.2 SEC (9.9-13.0); Red Blood Count 4.51 X10*6/uL (4.20-5.50); Red Cell Distribution Width 13.2 % (11.0-16.0); White Blood Count 6.9 X10*3/uL (4.8-10.8)
--- NOTE | 2022-01-14 07:10 | HO.POSTANES ---
Post Anesthesia Evaluation Post Anesthesia Evaluation Vital Signs: Vital Signs Temp Pulse Resp BP Pulse Ox 01/14/22 03:47 97.1 F 56 18 94/54 L 93 01/13/22 23:22 97.2 F 67 18 144/75 H 96 Anesthesia: General Mental Status: Awake Pain Control: Satisfactory Nausea/Vomiting: None Hydration: Adequate Anesthesia-Related Issues: No Anes. Related Issues
[2022-01-14 07:20] LABS: Alanine Aminotransferase 276 U/L (0-31); Albumin Level 3.5 g/dL (3.5-5.0); Alkaline Phosphatase 173 U/L (39-117); Anion Gap 10 (12-20); Aspartate Amino Transferase 136 U/L (5-31); Bilirubin Direct 0.4 mg/dL (0.0-0.5); Bilirubin Total 0.6 mg/dL (0.0-1.0); Blood Urea Nitrogen 6 mg/dL (9-16); Carbon Dioxide 23 mmol/L (22-29); Chloride 106 mmol/L (96-108); Estimated Glomerular Filt Rate > 60; Glucose Random 93 mg/dL (60-115); Lipase 74 U/L (8-78); Potassium 3.9 mmol/L (3.3-5.1); Sodium 135 mmol/L (135-145); Total Protein 6.6 g/dL (6.5-8.0)
[2022-01-14] MEDS: Multivitamin TABLET 1 TAB PO (10:43)
[2022-01-14] MEDS: Famotidine/PF 20 MG/2 ML VIAL IVPUSH ×2 (10:43→20:19)
[2022-01-14] MEDS: 0.9 % Sodium Chloride Flush 3 ML SYRINGE IVFLUSH (10:44)
--- NOTE | 2022-01-14 12:23 | PM.CNGS ---
History of Present Illness Consult details Consult date: 01/14/22 Narrative: 46-year-old female patient presenting with complaints of pain in the right flank admitted on 01/09/2022 after having approximately 3 days of pain associated with nausea without vomiting. She has a past history of gastritis, GERD, constipation, with symptoms on off for the past 18 years since the of her child. She denies fever, chills, diarrhea. She subsequent presented to the emergency department was noted to have elevation of her transaminases. Subsequent CT of the abdomen and pelvis revealed choledocholithiasis. Subsequently underwent MRCP which confirmed choledocholithiasis. She underwent an ERCP yesterday with removal of a common bile duct stone. On this procedure a cholangiogram failed to reveal a patent cystic duct. Surgical consultation is requested for cholecystectomy. Review of Systems Constitutional: Constitutional: Denies chills, Denies fever(s), Denies headache(s) and Reports poor appetite ENT: Denies dizziness and Denies headache(s) Cardiovascular: Cardiovascular: Denies chest pain, Denies rapid heart rate, Denies palpitations and Denies slow heart rate Respiratory: Respiratory: Denies chest congestion, Denies cough, Denies pain on inspiration and Denies wheezing Gastrointestinal: Gastrointestinal: Reports as per HPI, Reports abdominal pain, Denies bloating, Denies change in stool character, Reports constipation, Denies diarrhea, Reports nausea, Denies vomiting and Denies hematemesis Musculoskeletal: Musculoskeletal: Denies back pain, Denies arthralgias, Denies joint swelling and Denies numbness Integumentary/Breasts: Skin/Breast: Denies change in pigmentation, Denies erythema and Denies rash Neurologic: Denies dizziness, Denies headache(s) and Denies numbness Psychiatric: Psychiatric: Denies anxiety and Denies depression Endocrine: Endocrine: Denies palpitations Hematologic/Lymphatic: Hematologic/Lymphatic: Denies easy bleeding, Denies easy bruising and Denies lymphadenopathy Allergic/Immunologic: Allergic/Immunologic: Denies wheezing PMFSH Past Medical History Medical History Constipation Gallstones Gestational diabetes Heart murmur Hepatic steatosis Neck pain PTSD (post-traumatic stress disorder) Surgical History Surgical History H/O tubal ligation Social History Social History Household Members: Spouse and Children Housing: Other Housing Other:: jail Alcohol intake: never Patient Tobacco Use Status: Never used Tobacco Patient Interested in Nicotine Replacement: No Second Hand Smoke Exposure: No Use of substances other than those prescribed or required for medical reasons: No Currently Displaying Signs/Symptoms of Drug Intoxication Withdrawal: No Any prior treatment program specific to substance use: No Have you been hit, kicked, punched, or otherwise hurt by someone within the past year? If so, by whom?: No Do you feel safe in your current relationship?: Yes Is there a partner from a previous relationship who is making you feel unsafe now?: No Are you made to feel afraid or neglected: No Are you DNR?: No Advance Directives: No Advance Directives Information Provided: No Advance Directives on File: No Do you have thoughts of harming others: None Do you have a plan to hurt others: No Plan Recently lost weight without trying: No Eating poorly because of decreased appetite: Yes Nutrition Risks: No Nutritional Risk Patient : No : No Poor oral hygiene: No service: No Current occupational status: unemployed Meds Allergies Allergy/AdvReac Type Severity Reaction Status Date / Time ibuprofen [From Motrin] Allergy Hives Verified 01/09/22 14:13 NSAIDS (Non-Steroidal Allergy Hives Verified 01/13/22 16:24 Anti-Inflamma back medicin Allergy Hives Uncoded 01/09/22 14:13 Active Medications: Current Medications Diphenhydramine HCl (Diphenhydramine Hcl 25 Mg Tablet) 25 mg PO Q4H PRN PRN Reason: allergy Last Admin: 01/13/22 15:19 Dose: 25 mg Documented by: Enoxaparin Sodium (Enoxaparin Sodium 40 Mg/0.4 Ml Syringe) 40 mg SUBCUT Q24H [facility] Last Admin: 01/13/22 11:33 Dose: Not Given Documented by: Famotidine (Famotidine/Pf 20 Mg/2 Ml Vial) 20 mg IVPUSH BID VERA Last Admin: 01/14/22 10:43 Dose: 20 mg Documented by: Hydromorphone HCl (Hydromorphone Hcl 0.5 Mg/0.5 Ml Syringe) 0.5 mg IVPUSH Q4H PRN; Protocol PRN Reason: Pain, Severe (Pain Scale 7-10) Last Admin: 01/14/22 10:43 Dose: 0.5 mg Documented by: Lactated Ringer's (Lr) 1,000 mls @ 50 mls/hr IVCONT .Q20H [facility] Last Admin: 01/14/22 06:37 Dose: 50 mls/hr Documented by: Multivitamins/Vitamin C (Multivitamin Tablet) 1 tab PO DAILY [facility] Last Admin: 01/14/22 10:43 Dose: 1 tab Documented by: Ondansetron HCl (Ondansetron Hcl 4 Mg/2 Ml Vial) 4 mg IVPUSH Q8H PRN PRN Reason: Nausea and Vomiting Last Admin: 01/13/22 08:01 Dose: 4 mg Documented by: Pharmacy Consult (Consult Rx Perform Med Rec) 1 each MISCELLANE ONCE PRN PRN Reason: Consult order Polyethylene Glycol (Polyethylene Glycol 3350 17 Gm Powd.Pack) 17 gm PO DAILY [facility] Last Admin: 01/14/22 10:42 Dose: Not Given Documented by: Senna (Sennosides 8.6 Mg Tablet) 17.2 mg PO BEDTIME PRN PRN Reason: Constipation Sodium Chloride (0.9 % Sodium Chloride Flush 3 Ml Syringe) 3 ml IVFLUSH QSHIFT [facility] Last Admin: 01/14/22 10:44 Dose: 3 ml Documented by: Home Medications Medication Instructions Recorded Confirmed Last Taken Type multivitamin 1 tab PO DAILY 01/09/22 01/09/22 01/08/22 History Physical Exam Vital Signs: Vital Signs: Last Vital Signs Temp 97.0 F 01/14/22 12:00 Pulse 82 01/14/22 12:00 Resp 20 01/14/22 12:00 BP 98/72 01/14/22 12:00 Pulse Ox 96 01/14/22 12:00 BMI result Body Mass Index 31.3 Const: General: cooperative, comfortable and well developed Nutritional Appearance: well nourished Orientation/consciousness: patient oriented x3 HEENT: Head: Yes normocephalic and Yes atraumatic Ears: hearing grossly normal bilaterally Eyes: Sclerae: sclerae normal EOM: EOMs intact bilaterally Neck: Neck: Yes normal visual inspection Resp: Effort & Inspection: normal respiratory effort, no cough, no respiratory distress and no stridor Cardio: Jugular venous distension: no JVD GI: Inspection: Yes normal to inspection Palpation (GI): Soft to palpation, nontender, no guarding, not rigid and No hepatosplenomegaly present Percussion: Yes normal to percussion Rectal Exam - Female: deferred Skin: General skin exam: dry skin Rashes: no rashes Neuro: General: patient oriented x3 and no focal motor deficits Extrem: General: Yes full ROM and Yes no clubbing, cyanosis or edema Psych: Appearance: grossly normal Results Labs Result diagrams: 01/14/22 06:40 01/14/22 06:40 Labs: Abnormal lab results 01/14/22 Range/Units 06:40 Anion Gap 10 L (12-20) BUN 6 L (9-16) mg/dL AST 136 H (5-31) U/L ALT 276 H (0-31) U/L Alkaline Phosphatase 173 H (39-117) U/L Short CBC 01/14/22 Range/Units 06:40 WBC 6.9 (4.8-10.8) X10*3/uL Hgb 13.0 (12.0-16.0) g/dl Hct 39.5 (37.0-47.0) % Plt Count 244 (160-400) X10*3/uL BMP 01/14/22 06:40 Sodium 135 Potassium 3.9 Chloride 106 Carbon Dioxide 23 BUN 6 L Creatinine 0.71 Calcium 9.0 Liver Function 01/14/22 Range/Units 06:40 Total Bilirubin 0.6 (0.0-1.0) mg/dL Direct Bilirubin 0.4 (0.0-0.5) mg/dL AST 136 H (5-31) U/L ALT 276 H (0-31) U/L Alkaline Phosphatase 173 H (39-117) U/L Albumin 3.5 (3.5-5.0) g/dL Urine 01/09/22 01/09/22 Range/Units 16:15 16:15 Urine Color YELLOW Urine Appearance CLEAR Urine pH 6.0 (5.0-8.0) Ur Specific [place] <= 1.005 (1.005-1.025) Urine Protein NEG (NEG-TRACE) MG/DL Urine Glucose (UA) NEG (NEG) MG/DL Urine Test NEGATIVE (NEGATIVE) All other labs normal. Assessment and Plan (1) Choledocholithiasis: Status: Acute (2) Transaminitis: Status: Acute Plan 46-year-old female patient presenting with right flank pain found to have common duct stones. Ultrasound of the abdomen confirmed several small mobile stones within the gallbladder. Patient underwent ERCP with removal of common duct stones. Surgical consultation was requested for laparoscopic cholecystectomy the patient is in house. I reviewed the procedure, risks, and alternatives in detail with the patient she gives her consent for a laparoscopic or possible open cholecystectomy. She will be added onto the operative schedule for tomorrow. Procedures Date of Service Date of Service: 01/14/22
--- NOTE | 2022-01-14 12:38 | P.PNIM_ITS ---
Subjective Subjective Date of Service: 01/14/22 Interval History: Still c/o RUQ pain though improved from yesterday. No fever. Review of Systems Review of Systems: Yes all other systems are reviewed and are negative Physical Exam Vital Signs: Vital Signs: Last Vital Signs Temp 97.0 F 01/14/22 12:00 Pulse 82 01/14/22 12:00 Resp 20 01/14/22 12:00 BP 98/72 01/14/22 12:00 Pulse Ox 96 01/14/22 12:00 BMI result Body Mass Index 31.3 Gen: in no acute distress HEENT: sclera anicteric, moist mucus membranes Neck: supple Lungs: clear to auscultation bilaterally Heart: regular rate and rhythm, no murmurs Abd: soft, obese, RUQ tender Ext: no edema Skin: warm/well-perfused Neuro: alert and oriented x3, no focal findings Psych: appropriate affect Objective Data Active Medications Diphenhydramine HCl (Diphenhydramine Hcl 25 Mg Tablet) 25 mg PO Q4H PRN PRN Reason: allergy Last Admin: 01/13/22 15:19 Dose: 25 mg Documented by: SANDER Enoxaparin Sodium (Enoxaparin Sodium 40 Mg/0.4 Ml Syringe) 40 mg SUBCUT Q24H [facility] Last Admin: 01/13/22 11:33 Dose: Not Given Documented by: SANDER Non-Admin Reason: preop Famotidine (Famotidine/Pf 20 Mg/2 Ml Vial) 20 mg IVPUSH BID [facility] Last Admin: 01/14/22 10:43 Dose: 20 mg Documented by: SANDER Hydromorphone HCl (Hydromorphone Hcl 0.5 Mg/0.5 Ml Syringe) 0.5 mg IVPUSH Q4H PRN; Protocol PRN Reason: Pain, Severe (Pain Scale 7-10) Last Admin: 01/14/22 10:43 Dose: 0.5 mg Documented by: SANDER Lactated Ringer's (Lr) 1,000 mls @ 50 mls/hr IVCONT .Q20H [facility] Last Admin: 01/14/22 06:37 Dose: 50 mls/hr Documented by: DEVIN Multivitamins/Vitamin C (Multivitamin Tablet) 1 tab PO DAILY [facility] Last Admin: 01/14/22 10:43 Dose: 1 tab Documented by: SANDER Ondansetron HCl (Ondansetron Hcl 4 Mg/2 Ml Vial) 4 mg IVPUSH Q8H PRN PRN Reason: Nausea and Vomiting Last Admin: 01/13/22 08:01 Dose: 4 mg Documented by: SANDER Pharmacy Consult (Consult Rx Perform Med Rec) 1 each MISCELLANE ONCE PRN PRN Reason: Consult order Polyethylene Glycol (Polyethylene Glycol 3350 17 Gm Powd.Pack) 17 gm PO DAILY [facility] Last Admin: 01/14/22 10:42 Dose: Not Given Documented by: SANDER Non-Admin Reason: Patient Refused Senna (Sennosides 8.6 Mg Tablet) 17.2 mg PO BEDTIME PRN PRN Reason: Constipation Sodium Chloride (0.9 % Sodium Chloride Flush 3 Ml Syringe) 3 ml IVFLUSH QSHIFT [facility] Last Admin: 01/14/22 10:44 Dose: 3 ml Documented by: SANDER Labs CBC & Chem 7: 01/14/22 06:40 01/14/22 06:40 Labs: Laboratory Results - last 24 hr 01/14/22 01/14/22 01/14/22 06:40 06:40 06:40 MCV 87.6 MCH 28.8 MCHC 32.9 RDW 13.2 Plt Count 244 MPV 10.0 Absolute Nucleated RBC 0.000 Nucleated RBC % (auto) 0.0 PT 12.2 INR 1.1 Anion Gap 10 L Estim Creat Clear Calc 104.0 Estimated GFR > 60 Random Glucose 93 Calcium 9.0 Total Bilirubin 0.6 Direct Bilirubin 0.4 AST 136 H ALT 276 H Alkaline Phosphatase 173 H Total Protein 6.6 Albumin 3.5 Lipase 74 Assessment and Plan (1) Constipation: Status: Acute (2) Choledocholithiasis: Status: Acute (3) Transaminitis: Status: Acute (4) Flank pain: Status: Acute Plan hospital d#5 46yo F with obesity presenting with RUQ pain, found to have CBD stone # choledocholithiasis # biliary colic - ERCP done 01/13/[address] Craig showing: there was a suspected filling defect in distal CBD> A 10-12 mm sphincterotomy was performed. Balloon sweeps were done and small amounts of sludge and debris came out. An occlusion cholangiogram was done and the duct looked clear, the gallbladder did not fill with contrast - Dr Villarreal from [facility] consulted; NPO for lap mery tomorrow; continue clears today - continue IV hydromorphone for pain control # NAFLD # obesity - weight loss/exercise # VTE ppx - LMWH In my clinical judgment, the patient requires continued hospitalization for the following reasons: lap mery Quality Stroke Does the patient have a stroke diagnosis?: No VTE Prior VTE?: No VTE Risk Level:: Medical - moderate - high VTE Device Contraindication: Treatment Not Indicated VTE Drug Contraindication: N/A - Med Ordered
[2022-01-14] MEDS: diphenhydrAMINE HCL 25 MG TABLET PO (12:52)
[2022-01-14] MEDS: Enoxaparin Sodium 40 MG/0.4 ML SYRINGE SUBCUT (14:44)
[2022-01-14] MEDS: traZODone HCL 50 MG TABLET PO (20:19)
[2022-01-15] VITALS (18 sets, daily range): BP systolic 93–142; BP diastolic 52–83; PULSE 54–79; RESP 14–20; TEMP 35.9–36.8; O2SAT 96–100
[2022-01-15] MEDS: diphenhydrAMINE HCL 50 MG/ML VIAL 25 MG IVPUSH (01:06)
[2022-01-15 06:56] LABS: Alanine Aminotransferase 240 U/L (0-31); Albumin Level 3.3 g/dL (3.5-5.0); Alkaline Phosphatase 153 U/L (39-117); Aspartate Amino Transferase 126 U/L (5-31); Bilirubin Direct 0.3 mg/dL (0.0-0.5); Bilirubin Total 0.6 mg/dL (0.0-1.0); Total Protein 6.3 g/dL (6.5-8.0)
--- NOTE | 2022-01-15 07:36 | P.PNIM_ITS ---
Subjective Subjective Date of Service: 01/15/22 Interval History: Seen in f/u cholodocholithiais. RUQ pain is better, no fever Review of Systems abd pain no fever Physical Exam Vital Signs: Vital Signs: Last Vital Signs Temp 97.7 F 01/14/22 23:39 Pulse 57 01/14/22 23:39 Resp 18 01/14/22 23:39 BP 116/58 L 01/14/22 23:39 Pulse Ox 98 01/14/22 23:39 BMI result Body Mass Index 31.3 Const: Other: Gen: in no acute distress HEENT: sclera anicteric, moist mucus membranes Neck: supple Lungs: clear to auscultation bilaterally Heart: regular rate and rhythm, no murmurs Abd: soft, obese, RUQ tender Ext: no edema Skin: warm/well-perfused Neuro: alert and oriented x3, no focal findings Psych: appropriate affect ? Objective Data Active Medications Diphenhydramine HCl (Diphenhydramine Hcl 25 Mg Tablet) 25 mg PO Q4H PRN PRN Reason: allergy Last Admin: 01/14/22 12:52 Dose: 25 mg Documented by: SANDER Enoxaparin Sodium (Enoxaparin Sodium 40 Mg/0.4 Ml Syringe) 40 mg SUBCUT Q24H [facility] Last Admin: 01/14/22 14:44 Dose: 40 mg Documented by: SANDER Famotidine (Famotidine/Pf 20 Mg/2 Ml Vial) 20 mg IVPUSH BID [facility] Last Admin: 01/14/22 20:19 Dose: 20 mg Documented by: YARA Cefotetan Disodium 2 gm/ (Sodium Chloride) 50 mls @ 100 mls/hr IV PREOP ONE Stop: 01/15/22 09:29 Multivitamins/Vitamin C (Multivitamin Tablet) 1 tab PO DAILY [facility] Last Admin: 01/14/22 10:43 Dose: 1 tab Documented by: SANDER Ondansetron HCl (Ondansetron Hcl 4 Mg/2 Ml Vial) 4 mg IVPUSH Q8H PRN PRN Reason: Nausea and Vomiting Last Admin: 01/13/22 08:01 Dose: 4 mg Documented by: SANDER Pharmacy Consult (Consult Rx Perform Med Rec) 1 each MISCELLANE ONCE PRN PRN Reason: Consult order Polyethylene Glycol (Polyethylene Glycol 3350 17 Gm Powd.Pack) 17 gm PO DAILY [facility] Last Admin: 01/14/22 10:42 Dose: Not Given Documented by: SANDER Non-Admin Reason: Patient Refused Senna (Sennosides 8.6 Mg Tablet) 17.2 mg PO BEDTIME PRN PRN Reason: Constipation Sodium Chloride (0.9 % Sodium Chloride Flush 3 Ml Syringe) 3 ml IVFLUSH QSHIFT [facility] Last Admin: 01/14/22 23:35 Dose: Not Given Documented by: ALFRED Non-Admin Reason: IV Running Trazodone HCl (Trazodone Hcl 50 Mg Tablet) 50 mg PO BEDTIME PRN PRN Reason: insomnia Last Admin: 01/14/22 20:19 Dose: 50 mg Documented by: YARA Labs CBC & Chem 7: 01/14/22 06:40 01/14/22 06:40 Labs: Laboratory Results - last 24 hr 01/15/22 05:56 Total Bilirubin 0.6 Direct Bilirubin 0.3 AST 126 H ALT 240 H Alkaline Phosphatase 153 H Total Protein 6.3 L Albumin 3.3 L Assessment and Plan (1) Constipation: Status: Acute (2) Choledocholithiasis: Status: Acute (3) Transaminitis: Status: Acute (4) Flank pain: Status: Acute Plan hospital d#6 46yo F with obesity presenting with RUQ pain, found to have CBD stone # choledocholithiasis # biliary colic -ERCP done 01/13/[address] Craig showing: there was a suspected filling defect in distal CBD> A 10-12 mm sphincterotomy was performed. Balloon sweeps were done and small amounts of sludge and debris came out. An occlusion cholangiogram was done and the duct looked clear, the gallbladder did not fill with contrast - Dr Villarreal from [facility] consulted; NPO for lap mery today 01/14 - continue IV hydromorphone for pain control -falls on low risk for surgery and no further testing warranted at this time. # NAFLD #Obesity - weight loss/exercise advised # VTE ppx - LMWH In my clinical judgment, the patient requires continued hospitalization for cholecystectomy Quality Stroke Does the patient have a stroke diagnosis?: No VTE Prior VTE?: No VTE Risk Level:: Medical - moderate - high VTE Device Contraindication: Treatment Not Indicated VTE Drug Contraindication: N/A - Med Ordered
--- NOTE | 2022-01-15 09:11 | P.CONAN_ITS ---
HPI - Anesthesia Eval Consult details Narrative: 46 yo female patient for laparoscopic cholecystectomy PMFSH Active Problems Active Problems: All Active Problems (Updated 01/13/22 @ 16:26 by Morenita Breaux RN) Choledocholithiasis (Acute) Transaminitis (Acute) Flank pain (Acute) Gallstones (Acute) Hepatic steatosis (Acute) Constipation (Acute) Major Anxiety Claustrophobia with elevators Past Medical History Medical History Constipation Gallstones Gestational diabetes Heart murmur Hepatic steatosis Neck pain PTSD (post-traumatic stress disorder) Family History Family history of problems with anesthesia: No Surgical History Surgical History H/O tubal ligation History of Problems with Anesthesia: No Social History Social History Household Members: Spouse and Children Housing: Other Housing Other:: detention Alcohol intake: never Patient Tobacco Use Status: Never used Tobacco Patient Interested in Nicotine Replacement: No Second Hand Smoke Exposure: No Use of substances other than those prescribed or required for medical reasons: No Currently Displaying Signs/Symptoms of Drug Intoxication Withdrawal: No Any prior treatment program specific to substance use: No Have you been hit, kicked, punched, or otherwise hurt by someone within the past year? If so, by whom?: No Do you feel safe in your current relationship?: Yes Is there a partner from a previous relationship who is making you feel unsafe now?: No Are you made to feel afraid or neglected: No Are you DNR?: No Advance Directives: No Advance Directives Information Provided: No Advance Directives on File: No Do you have thoughts of harming others: None Do you have a plan to hurt others: No Plan Recently lost weight without trying: No Eating poorly because of decreased appetite: Yes Nutrition Risks: No Nutritional Risk Patient : No (tubal ligation) : No Poor oral hygiene: No service: No Current occupational status: unemployed Meds Allergies Allergy/AdvReac Type Severity Reaction Status Date / Time ibuprofen [From Motrin] Allergy Hives Verified 01/09/22 14:13 NSAIDS (Non-Steroidal Allergy Hives Verified 01/13/22 16:24 Anti-Inflamma back medicin Allergy Hives Uncoded 01/09/22 14:13 Active Medications: Current Medications Diphenhydramine HCl (Diphenhydramine Hcl 25 Mg Tablet) 25 mg PO Q4H PRN PRN Reason: allergy Last Admin: 01/14/22 12:52 Dose: 25 mg Documented by: Enoxaparin Sodium (Enoxaparin Sodium 40 Mg/0.4 Ml Syringe) 40 mg SUBCUT Q24H [facility] Last Admin: 01/14/22 14:44 Dose: 40 mg Documented by: Famotidine (Famotidine/Pf 20 Mg/2 Ml Vial) 20 mg IVPUSH BID [facility] Last Admin: 01/14/22 20:19 Dose: 20 mg Documented by: Cefotetan Disodium 2 gm/ (Sodium Chloride) 50 mls @ 100 mls/hr IV PREOP ONE Stop: 01/15/22 09:29 Multivitamins/Vitamin C (Multivitamin Tablet) 1 tab PO DAILY [facility] Last Admin: 01/14/22 10:43 Dose: 1 tab Documented by: Ondansetron HCl (Ondansetron Hcl 4 Mg/2 Ml Vial) 4 mg IVPUSH Q8H PRN PRN Reason: Nausea and Vomiting Last Admin: 01/13/22 08:01 Dose: 4 mg Documented by: Pharmacy Consult (Consult Rx Perform Med Rec) 1 each MISCELLANE ONCE PRN PRN Reason: Consult order Polyethylene Glycol (Polyethylene Glycol 3350 17 Gm Powd.Pack) 17 gm PO DAILY [facility] Last Admin: 01/14/22 10:42 Dose: Not Given Documented by: Senna (Sennosides 8.6 Mg Tablet) 17.2 mg PO BEDTIME PRN PRN Reason: Constipation Sodium Chloride (0.9 % Sodium Chloride Flush 3 Ml Syringe) 3 ml IVFLUSH QSHIFT [facility] Last Admin: 01/14/22 23:35 Dose: Not Given Documented by: Trazodone HCl (Trazodone Hcl 50 Mg Tablet) 50 mg PO BEDTIME PRN PRN Reason: insomnia Last Admin: 01/14/22 20:19 Dose: 50 mg Documented by: Home Medications Medication Instructions Recorded Confirmed Last Taken Type multivitamin 1 tab PO DAILY 01/09/22 01/09/22 01/08/22 History Exam Exam Date and Time: January 15, 2022 0911 Height,Weight and Vital Signs: Height 5 ft 4 in Weight 82.7 kg Last Vital Signs Temp 97.7 F 01/14/22 23:39 Pulse 57 01/14/22 23:39 Resp 18 01/14/22 23:39 BP 116/58 L 01/14/22 23:39 Pulse Ox 98 01/14/22 23:39 Vital Signs Temp Pulse Resp BP Pulse Ox 01/15/22 09:53 98.3 F 72 18 109/57 L 98 01/15/22 08:00 97.9 F 79 18 132/83 97 01/14/22 23:39 97.7 F 57 18 116/58 L 98 01/14/22 18:48 97 F 62 19 129/71 98 01/14/22 16:00 96.4 F L 59 18 115/62 94 01/14/22 15:27 96.4 F L 59 18 115/62 94 01/14/22 12:00 97.0 F 82 20 98/72 96 Pertinent Lab Results Pertinent Lab Results: Laboratory Tests 01/09/22 01/09/22 01/09/22 14:36 14:36 14:36 WBC 6.3 RBC 4.76 Hgb 13.9 Hct 42.3 MCV 88.9 MCH 29.2 MCHC 32.9 RDW 13.5 Plt Count 281 MPV 9.5 Immature Gran % (Auto) 0.0 Neut % (Auto) 69.0 Lymph % (Auto) 23.5 [place] % (Auto) 6.9 Eos % (Auto) 0.3 Baso % (Auto) 0.3 Lymph # (Auto) 1.5 [place] # (Auto) 0.4 Eos # (Auto) 0.0 Baso # (Auto) 0.0 Abs Immat Gran (auto) 0.00 Absolute Neuts (auto) 4.3 Absolute Nucleated RBC 0.000 Nucleated RBC % (auto) 0.0 PT INR Sodium 142 Potassium 3.9 Chloride 108 Carbon Dioxide 27 Anion Gap 11 L BUN 6 L Creatinine 0.78 Estim Creat Clear Calc 94.7 Estimated GFR > 60 Random Glucose 107 Fasting Glucose Estimat Average Glucose Hemoglobin A1c % Calcium 9.6 Total Bilirubin 0.5 Direct Bilirubin 0.2 AST 72 H ALT 134 H Alkaline Phosphatase 119 H Total Protein 7.5 Albumin 4.1 Triglycerides Cholesterol LDL Cholesterol, Calc HDL Cholesterol Lipase 26 Urine Color Urine Appearance Urine pH Ur Specific [place] Urine Protein Urine Glucose (UA) Urine Ketones Urine Blood Urine Nitrite Ur Leukocyte Esterase Urine Test COVID-19 (BUCK) COVID-19 Clin Com Hepatitis A IgM Ab Nonreactive Hep Bs Antigen Negative Hep Bs Antibody REACTIVE Hep B Core Total Ab Nonreactive Hepatitis C Ab (EIA) Nonreactive 01/09/22 01/09/22 01/10/22 16:15 16:15 05:03 WBC RBC Hgb Hct MCV MCH MCHC RDW Plt Count MPV Immature Gran % (Auto) Neut % (Auto) Lymph % (Auto) [place] % (Auto) Eos % (Auto) Baso % (Auto) Lymph # (Auto) [place] # (Auto) Eos # (Auto) Baso # (Auto) Abs Immat Gran (auto) Absolute Neuts (auto) Absolute Nucleated RBC Nucleated RBC % (auto) PT INR Sodium Potassium Chloride Carbon Dioxide Anion Gap BUN Creatinine Estim Creat Clear Calc Estimated GFR Random Glucose Fasting Glucose Estimat Average Glucose Hemoglobin A1c % Calcium Total Bilirubin Direct Bilirubin AST ALT Alkaline Phosphatase Total Protein Albumin Triglycerides Cholesterol LDL Cholesterol, Calc HDL Cholesterol Lipase Urine Color YELLOW Urine Appearance CLEAR Urine pH 6.0 Ur Specific [place] <= 1.005 Urine Protein NEG Urine Glucose (UA) NEG Urine Ketones NEG Urine Blood NEG Urine Nitrite NEG Ur Leukocyte Esterase NEG Urine Test NEGATIVE COVID-19 ([facility]CK) Negative COVID-19 Clin Com See Note Hepatitis A IgM Ab Hep Bs Antigen Hep Bs Antibody Hep B Core Total Ab Hepatitis C Ab (EIA) 01/10/22 01/10/22 01/10/22 07:49 07:49 07:49 WBC 5.6 RBC 4.37 Hgb 12.6 Hct 38.8 MCV 88.8 MCH 28.8 MCHC 32.5 RDW 13.6 Plt Count 217 MPV 10.0 Immature Gran % (Auto) 0.0 Neut % (Auto) 56.3 Lymph % (Auto) 33.6 [place] % (Auto) 8.6 Eos % (Auto) 1.3 Baso % (Auto) 0.2 Lymph # (Auto) 1.9 [place] # (Auto) 0.5 Eos # (Auto) 0.1 Baso # (Auto) 0.0 Abs Immat Gran (auto) 0.00 Absolute Neuts (auto) 3.2 Absolute Nucleated RBC 0.000 Nucleated RBC % (auto) 0.0 PT INR Sodium 138 Potassium 4.4 Chloride 108 Carbon Dioxide 23 Anion Gap 11 L BUN 5 L Creatinine 0.66 Estim Creat Clear Calc 111.9 Estimated GFR > 60 Random Glucose 119 H Fasting Glucose Estimat Average Glucose Hemoglobin A1c % Calcium 8.5 D Total Bilirubin 0.5 Cancelled Direct Bilirubin 0.2 Cancelled AST 73 H Cancelled ALT 124 H Cancelled Alkaline Phosphatase 106 Cancelled Total Protein 6.6 Cancelled Albumin 3.4 L Cancelled Triglycerides Cholesterol LDL Cholesterol, Calc HDL Cholesterol Lipase Urine Color Urine Appearance Urine pH Ur Specific [place] Urine Protein Urine Glucose (UA) Urine Ketones Urine Blood Urine Nitrite Ur Leukocyte Esterase Urine Test COVID-19 (BUCK) COVID-19 Clin Com Hepatitis A IgM Ab Hep Bs Antigen Hep Bs Antibody Hep B Core Total Ab Hepatitis C Ab (EIA) 01/11/22 01/11/22 01/12/22 08:58 08:58 09:26 WBC 4.3 L RBC 4.69 Hgb 13.9 Hct 41.7 MCV 88.9 MCH 29.6 MCHC 33.3 RDW 13.6 Plt Count 232 MPV 9.8 Immature Gran % (Auto) Neut % (Auto) Lymph % (Auto) [place] % (Auto) Eos % (Auto) Baso % (Auto) Lymph # (Auto) [place] # (Auto) Eos # (Auto) Baso # (Auto) Abs Immat Gran (auto) Absolute Neuts (auto) Absolute Nucleated RBC 0.000 Nucleated RBC % (auto) 0.0 PT INR Sodium Potassium Chloride Carbon Dioxide Anion Gap BUN Creatinine Estim Creat Clear Calc Estimated GFR Random Glucose Fasting Glucose Estimat Average Glucose 105 Hemoglobin A1c % 5.3 Calcium Total Bilirubin 0.8 Direct Bilirubin 0.4 AST 87 H ALT 140 H Alkaline Phosphatase 126 H Total Protein 6.9 Albumin 3.7 Triglycerides 133 Cholesterol 139 LDL Cholesterol, Calc 83 HDL Cholesterol 30 Lipase Urine Color Urine Appearance Urine pH Ur Specific [place] Urine Protein Urine Glucose (UA) Urine Ketones Urine Blood Urine Nitrite Ur Leukocyte Esterase Urine Test COVID-19 (BUCK) COVID-19 Clin Com Hepatitis A IgM Ab Hep Bs Antigen Hep Bs Antibody Hep B Core Total Ab Hepatitis C Ab (EIA) 01/12/22 01/13/22 01/14/22 09:26 06:15 06:40 WBC RBC Hgb Hct MCV MCH MCHC RDW Plt Count MPV Immature Gran % (Auto) Neut % (Auto) Lymph % (Auto) [place] % (Auto) Eos % (Auto) Baso % (Auto) Lymph # (Auto) [place] # (Auto) Eos # (Auto) Baso # (Auto) Abs Immat Gran (auto) Absolute Neuts (auto) Absolute Nucleated RBC Nucleated RBC % (auto) PT 12.2 INR 1.1 Sodium 139 138 Potassium 3.7 3.6 Chloride 106 105 Carbon Dioxide 25 24 Anion Gap 12 13 BUN 5 L 4 L Creatinine 0.76 0.69 Estim Creat Clear Calc 97.2 107.1 Estimated GFR > 60 > 60 Random Glucose 91 Fasting Glucose 90 Estimat Average Glucose Hemoglobin A1c % Calcium 9.2 D 8.9 Total Bilirubin 3.0 H 0.8 Direct Bilirubin 2.0 H AST 280 H 129 H ALT 429 H 314 H Alkaline Phosphatase 200 H D 177 H Total Protein 7.0 6.6 Albumin 3.7 3.5 Triglycerides Cholesterol LDL Cholesterol, Calc HDL Cholesterol Lipase Urine Color Urine Appearance Urine pH Ur Specific [place] Urine Protein Urine Glucose (UA) Urine Ketones Urine Blood Urine Nitrite Ur Leukocyte Esterase Urine Test COVID-19 ([facility]) COVID-19 Clin Com Hepatitis A IgM Ab Hep Bs Antigen Hep Bs Antibody Hep B Core Total Ab Hepatitis C Ab (EIA) 01/14/22 01/14/22 01/15/22 06:40 06:40 05:56 WBC 6.9 RBC 4.51 Hgb 13.0 Hct 39.5 MCV 87.6 MCH 28.8 MCHC 32.9 RDW 13.2 Plt Count 244 MPV 10.0 Immature Gran % (Auto) Neut % (Auto) Lymph % (Auto) [place] % (Auto) Eos % (Auto) Baso % (Auto) Lymph # (Auto) [place] # (Auto) Eos # (Auto) Baso # (Auto) Abs Immat Gran (auto) Absolute Neuts (auto) Absolute Nucleated RBC 0.000 Nucleated RBC % (auto) 0.0 PT INR Sodium 135 Potassium 3.9 Chloride 106 Carbon Dioxide 23 Anion Gap 10 L BUN 6 L Creatinine 0.71 Estim Creat Clear Calc 104.0 Estimated GFR > 60 Random Glucose 93 Fasting Glucose Estimat Average Glucose Hemoglobin A1c % Calcium 9.0 Total Bilirubin 0.6 0.6 Direct Bilirubin 0.4 0.3 AST 136 H 126 H ALT 276 H 240 H Alkaline Phosphatase 173 H 153 H Total Protein 6.6 6.3 L Albumin 3.5 3.3 L Triglycerides Cholesterol LDL Cholesterol, Calc HDL Cholesterol Lipase 74 Urine Color Urine Appearance Urine pH Ur Specific [place] Urine Protein Urine Glucose (UA) Urine Ketones Urine Blood Urine Nitrite Ur Leukocyte Esterase Urine Test COVID-19 ([facility]) COVID-19 Clin Com Hepatitis A IgM Ab Hep Bs Antigen Hep Bs Antibody Hep B Core Total Ab Hepatitis C Ab (EIA) Airway Mallampati Class: II TM Dist: >3cm Neck ROM: Full Loose/Missing/Broken Teeth: Yes (Broken back) Heart: RRR ?murmur Lungs: CTAB Assessment and Plan Assessment Anesthesia Assessment: Anesthesia Plan Discussed and Chart Reviewed Final Anesthetic Review Family History of Problems with Anesthesia: No History of Problems with Anesthesia: No NPO: Yes ASA Class: II Final Preanesthetic Review: No Changes in Pt Med Stat, Meds/Allgs Chart Reviewed, Consent Obtained/Reviewed and Anes Risks/Benef Reviewed Patient Risk: Low Procedure Risk: Low Assessment/Block/Sedation in SS: Assess/Block/Sedation-SS Anesthetic Plan Anesthetic Plan: GA Disposition: Standard PACU
--- NOTE | 2022-01-15 11:50 | P.OP_ITS ---
Operative Note Operative Note Date of Service: 01/15/22 Narrative: Preoperative diagnosis: Choledocholithiasis Postoperative diagnosis: Same Procedure: Laparoscopic cholecystectomy Surgeon: Feng Villarreal MD Plasma Processing Centrifuge Operator: No physician Anesthesia: General endotracheal Indications for procedure: 46-year-old female patient found to have abdominal pain in the right upper quadrant elevated LFTs. Ultrasound and MRI confirmed choledocholithiasis. She subsequently underwent ERCP with removal of common bile duct stones. She presents now for laparoscopic cholecystectomy. Operative findings: Noninflamed gallbladder Specimen: gallbladder Estimated blood loss: Less than 1 mL Complications: None Procedure details: Patient was brought to the OR and placed in a supine position. After administering general anesthesia the patient's abdomen was prepped with ChloraPrep and draped in a sterile fashion. Local anesthesia consisting of 0.25% Sensorcaine without epinephrine was infiltrated in a periumbilical region. A 5 mm incision was made above the umbilicus in a trans verse fashion. The Veress needle was then inserted while elevating abdominal cavity with towel clips. After positive drop test the abdomen was insufflated to a pressure of 15 mm of mercury. The Veress needle was then removed and a 5 mm trocar inserted. The camera was inserted in the abdomen explored. A 12 mm trocar was then placed in the epigastrium. Two 5 mm trocars placed in the right upper quadrant by the expanded duty dental assistant. The patient was placed in reverse Trendelenburg positioning and rotated to the left. The gallbladder was grasped with the fundus and retracted cephalad by the expanded duty dental assistant. The infundibulum was then grasped and retracted away from the liver bed, also by the expanded duty dental assistant. The Dolphin dissected was then used by the surgeon to dissect the peritoneum off the infundibulum to reveal the junction with the cystic duct. Cystic artery was noted slightly medial and posterior to the cystic duct. After obtaining a critical view the cystic duct was doubly clipped and divided. The cystic artery was then doubly clipped and divided. The gallbladder was then dissected off the liver bed using electrocautery with an L hook. Hemostasis was assured all times using the electrocautery. When the gallbladder is completely dissected off the liver bed was placed in an Endo-Catch bag and brought out through the epigastric incision. The gallbladder remained intact with no leakage or dropped stones. Gallbladder was sent to pathology for further examination. The abdomen was then re-examined. The liver bed was irrigated and suctioned dry. No bleeding or bile leak could be identified. CO2 was then evacuated and all trocars removed. Fascia was closed at the epigastric incision using a [id number] 0 Polysorb suture. Skin was closed in all incisions using a subcuticular 4 0 Polysorb suture by both the surgeon and expanded duty dental assistant. Sterile dressings consisting of Steri-Strips, 2 x 2 gauze, and Tegaderm were then applied. The patient tolerated the procedure well. Sponge instrument and needle counts reported as correct. The patient was transferred to PACU in stable condition.
--- NOTE | 2022-01-15 11:54 | MHC.CM.PN ---
EMR REVIEWED, PLAN FOR LAP [facility] TODAY AND ANTIC D/C TOMORROW, PT WILL RETURN TO [facility], CM MET W/PT AND AT BEDSIDE, PT HAD MULTIPLE COMPLAINTS REGARDING [facility] INCLUDING NOT HAVING A BIG ENOUGH BED AND REPORTING SHE IS USED TO A ELIZABETH SIZE BED AND WANTING CM TO CONTACT ENTRY ENGINEER FOR HER SHE HAS CONTACTED THEM ABOUT SUING STAFF AT [facility] AND [facility] MISSING THEIR RETURN CALLS, PT AWARE SHE WILL NEED TO DO THIS ON HER OWN AND CM CAN NOT ASSIST, PT AND AWARE WE ANTIC PT WILL BE ABLE TO D/C TOMORROW [facility] PT'S TYPICALLY ONLY STAY ONE NIGHT AFTER PROCEDURE IF INPT.PT REQUESTING DIETARY CONSULT AND HOSPITALIST NOTIFIED VIA [facility] TO CONT TO FOLLOW D/C NEEDS.
[2022-01-15] MEDS: fentaNYL citrate/PF 100 MCG/2 ML VIAL 25 MCG IVPUSH ×3 (12:11→12:46)
[2022-01-15] MEDS: Enoxaparin Sodium 40 MG/0.4 ML SYRINGE SUBCUT (14:13)
--- NOTE | 2022-01-15 15:15 | MHC.CLN ---
NUTRITION NUTRITION CONSULT-PATIENT ASKED TO SPEAK WITH DIETITIAN. SPOKE WITH PATIENT AFTER SHE RETURNED FROM CHOLECYSTECTOMY SURGERY. MALE FRIEND IN ROOM. PATIENT WANTED INFORMATION ABOUT VEGETARIAN EATING. LIKES CHICKEN AND WILL CONTINUES TO EAT THAT. DIET=LOW FAT. PROVIDED HANDOUT FOR FAT RESTRICTED DIET WELL VEGETARIAN EATING. PATIENT ON PHONE AND PROVIDED INFORMATION TO FRIEND. ADDED ENSURE CLEAR TID PER FRIEND'S REQUEST. SUPPLEMENT IS NO FAT PRODUCT. PROVIDES ADDITIONAL 720 KCALS, 24 G PROTEIN. LUNCH ARRIVED WHILE THIS RESEARCH TECH WAS IN ROOM. PATIENT EXPRESSED CONCERN WITH EATING SINCE HAD BEEN NPO. RECOMMENDED TRY ENSURE CLEAR AND TAKE SMALL AMOUNT WHEN SHE FIRST EATS.
[2022-01-15] MEDS: HYDROmorphone HCl 0.5 MG/0.5 ML SYRINGE IVPUSH (15:40)
[2022-01-15] MEDS: Famotidine/PF 20 MG/2 ML VIAL IVPUSH (20:04)
[2022-01-15] MEDS: oxyCODONE HCl Immed Release 5 MG TABLET PO (20:04)
[2022-01-15] MEDS: diphenhydrAMINE HCL 25 MG TABLET PO (22:19)
[2022-01-15] MEDS: Lactated Ringers 1,000 ML 100 ML IVCONT (22:19)
[2022-01-16] MEDS: HYDROmorphone HCl 0.5 MG/0.5 ML SYRINGE IVPUSH ×2 (04:44→08:47)
[2022-01-16 06:02] LABS: MANUAL DIFF FLAG NO
[2022-01-16 06:07] LABS: Basophils Percent Auto 0.1 % (0-2); Eosinophils Percent Auto 0.1 % (0-4); Hematocrit 36.7 % (37.0-47.0); Imm Gran Abs Auto 0.01 X10*3/uL (0.00-0.03); Imm Gran Pct Auto 0.1 % (0.0-0.4); Lymphocytes Absolute Auto 2.7 X10*3/uL (1.2-4.9); Lymphocytes Percent Auto 36.4 % (20-40); Mean Corpuscular HGB Conc 32.7 g/dl (31.0-35.0); Mean Corpuscular Volume 88.6 fL (80.0-98.0); Mean Platelet Volume 10.2 fL (9.4-12.3); Monocytes Absolute Auto 0.6 X10*3/uL (0.1-1.2); Neutrophils Absolute Auto 4.1 x10*3/uL (2.0-8.3); Neutrophils Percent Auto 55.3 % (45-73); Platelet Count 235 X10*3/uL (160-400); Red Blood Count 4.14 X10*6/uL (4.20-5.50); Red Cell Distribution Width 13.5 % (11.0-16.0); White Blood Count 7.4 X10*3/uL (4.8-10.8)
[2022-01-16 06:43] LABS: Anion Gap 12 (12-20); Blood Urea Nitrogen 6 mg/dL (9-16); Calcium 8.9 mg/dL (8.4-10.2); Carbon Dioxide 25 mmol/L (22-29); Chloride 106 mmol/L (96-108); Creatinine Clr Calc Pharmacy 105.6; Estimated Glomerular Filt Rate > 60; Glucose Random 103 mg/dL (60-115); Potassium 3.5 mmol/L (3.3-5.1); Sodium 139 mmol/L (135-145)
[2022-01-16 08:00] VITALS: BP 126/69; PULSE 61; RESP 19; TEMP 36.5; O2SAT 100
[2022-01-16] MEDS: Multivitamin TABLET 1 TAB PO (08:38)
--- NOTE | 2022-01-16 08:40 | HO.PM.IMPN ---
Subjective Subjective Date of Service: 01/16/22 Interval History: Seen in f/u cholodocholithiais s/p CCY 6/3 has some soreness at surgery site, eating, +flatus Review of Systems abd pain no fever Physical Exam Vital Signs: Vital Signs: Last Vital Signs Temp 97.6 F 01/15/22 23:16 Pulse 63 01/15/22 23:16 Resp 17 01/15/22 23:16 BP 142/65 H 01/15/22 23:16 Pulse Ox 99 01/15/22 23:16 BMI result Body Mass Index 31.3 Const: Other: Gen: in no acute distress HEENT: sclera anicteric, moist mucus membranes Neck: supple Lungs: clear to auscultation bilaterally Heart: regular rate and rhythm, no murmurs Abd: minimal tenderness at incision sites Ext: no edema Skin: warm/well-perfused Neuro: alert and oriented x3, no focal findings Psych: appropriate affect ? Objective Data Active Medications Diphenhydramine HCl (Diphenhydramine Hcl 25 Mg Tablet) 25 mg PO Q4H PRN PRN Reason: allergy Last Admin: 01/15/22 22:19 Dose: 25 mg Documented by: YARA Enoxaparin Sodium (Enoxaparin Sodium 40 Mg/0.4 Ml Syringe) 40 mg SUBCUT Q24H [facility] Last Admin: 01/15/22 14:13 Dose: 40 mg Documented by: JOHN Famotidine (Famotidine/Pf 20 Mg/2 Ml Vial) 20 mg IVPUSH BID [facility] [place] Last Admin: 01/15/22 20:04 Dose: 20 mg Documented by: YARA Hydromorphone HCl (Hydromorphone Hcl 0.5 Mg/0.5 Ml Syringe) 0.5 mg IVPUSH Q3H PRN; Protocol PRN Reason: Pain, Severe (Pain Scale 7-10) Last Admin: 01/16/22 04:44 Dose: 0.5 mg Documented by: LEEANNA Lactated Ringer's (Lr) 1,000 mls @ 100 mls/hr IVCONT .Q10H [facility] [place] Last Infusion: 01/16/22 08:33 Dose: 100 mls/hr Documented by: JOHN Multivitamins/Vitamin C (Multivitamin Tablet) 1 tab PO DAILY [facility] [place] Last Admin: 01/15/22 10:54 Dose: Not Given Documented by: JOHN Non-Admin Reason: Off Unit: Surgery Ondansetron HCl (Ondansetron Hcl 4 Mg/2 Ml Vial) 4 mg IVPUSH Q8H PRN PRN Reason: Nausea and Vomiting Last Admin: 01/13/22 08:01 Dose: 4 mg Documented by: SANDER Oxycodone HCl (Oxycodone Hcl Immed Release 5 Mg Tablet) 5 mg PO Q4H PRN PRN Reason: Pain, Moderate (Pain Scale 4-6 Last Admin: 01/15/22 20:04 Dose: 5 mg Documented by: YARA Pharmacy Consult (Consult Rx Perform Med Rec) 1 each MISCELLANE ONCE PRN PRN Reason: Consult order Polyethylene Glycol (Polyethylene Glycol 3350 17 Gm Powd.Pack) 17 gm PO DAILY [facility] [place] Last Admin: 01/15/22 10:54 Dose: Not Given Documented by: JOHN Non-Admin Reason: Off Unit: Surgery Senna (Sennosides 8.6 Mg Tablet) 17.2 mg PO BEDTIME PRN PRN Reason: Constipation Simethicone (Simethicone 80 Mg Tab.Chew) 80 mg PO QIDWMHS PRN PRN Reason: Gas Sodium Chloride (0.9 % Sodium Chloride Flush 3 Ml Syringe) 3 ml IVFLUSH QSHIFT [facility] [place] Last Admin: 01/15/22 23:50 Dose: Not Given Documented by: LEEANNA Non-Admin Reason: IV Running Trazodone HCl (Trazodone Hcl 50 Mg Tablet) 50 mg PO BEDTIME PRN PRN Reason: insomnia Last Admin: 01/14/22 20:19 Dose: 50 mg Documented by: YARA Labs CBC & Chem 7: 01/16/22 05:13 01/16/22 05:13 Labs: Laboratory Results - last 24 hr 01/16/22 01/16/22 05:13 05:13 MCV 88.6 MCH 29.0 MCHC 32.7 RDW 13.5 Plt Count 235 MPV 10.2 Immature Gran % (Auto) 0.1 Neut % (Auto) 55.3 Lymph % (Auto) 36.4 [place] % (Auto) 8.0 Eos % (Auto) 0.1 Baso % (Auto) 0.1 Lymph # (Auto) 2.7 [place] # (Auto) 0.6 Eos # (Auto) 0.0 Baso # (Auto) 0.0 Abs Immat Gran (auto) 0.01 Absolute Neuts (auto) 4.1 Absolute Nucleated RBC 0.000 Nucleated RBC % (auto) 0.0 Anion Gap 12 Estim Creat Clear Calc 105.6 Estimated GFR > 60 Random Glucose 103 Calcium 8.9 Assessment and Plan (1) Constipation: Status: Acute (2) Choledocholithiasis: Status: Acute (3) Transaminitis: Status: Acute (4) Flank pain: Status: Acute Plan hospital d#6 46yo F with obesity presenting with RUQ pain, found to have CBD stone # choledocholithiasis # biliary colic -ERCP done 01/13/[address] Craig showing: there was a suspected filling defect in distal CBD> A 10-12 mm sphincterotomy was performed. Balloon sweeps were done and small amounts of sludge and debris came out. An occlusion cholangiogram was done and the duct looked clear, the gallbladder did not fill with contrast - Dr Villarreal did CCY 01/15, doing well post operatively -continue pain management, diet per surgery and discharge when deemed ok by surgery # NAFLD #Obesity - weight loss/exercise advised # VTE ppx - LMWH In my clinical judgment, the patient requires continued hospitalization pod#1 and when deem ready to discharged by surgeon will discharg Quality Stroke Does the patient have a stroke diagnosis?: No VTE Prior VTE?: No VTE Risk Level:: Medical - moderate - high VTE Device Contraindication: Treatment Not Indicated VTE Drug Contraindication: N/A - Med Ordered
[2022-01-16] MEDS: Famotidine/PF 20 MG/2 ML VIAL IVPUSH (08:44)
--- NOTE | 2022-01-16 08:45 | P.DS_ITS ---
DS: Providers Provider Date of Service: 01/16/22 Date of admission: 01/09/22 22:10 Primary care physician: Unknown Physician Consults: 01/09/22 22:10 Consult to Gastroenterology Routine Consulting Provider: Aly Craig Reason for consultation: choledocholithiasis 01/14/22 08:02 Consult to General Surgery Routine Consulting Provider: [facility] [place] [facility] Reason for consultation: Choledocholithiasis s/p ERCP 01/13, [facility] did not fill on cholangiogram DS: Diagnosis Discharge Diagnosis (1) Constipation: Status: Acute (2) Choledocholithiasis: Status: Acute (3) Transaminitis: Status: Acute (4) Flank pain: Status: Acute DS: Summary Hospital Course Hospital Course: Hospital course: Chief Complaint:? right flank pain ?46-year-old female with a past medical history of gastritis, GERD, constipation, history of ; presented to the hospital today with a chief complaint of right flank pain.? Patient reports that for the past 3 days she has been having right flank pain associated nausea; denies any diarrhea.? Denies any fever chills.? Denies any cough or sputum production.? Denies any urinary symptoms.? Patient reports constipation Review of all other systems is negative except mentioned above ER course: Per ER team patient noted to have right flank tenderness; CT scan showed findings consistent with choledocholithiasis; on labs noted to have mild transaminitis; patient is afebrile and no leukocytosis.? Notified Gastroenterology who suggested MRCP.? Admitted for further management. Hospital course: 46yo F with obesity presenting with RUQ pain, found to have CBD stone and underwent ERC for choledocholithiasis with biliary colic -ERCP on 01/13/[address] Craig showing: there was a suspected filling defect in distal CBD> A 10-12 mm sphincterotomy was performed. Balloon sweeps were done and small amounts of sludge and debris came out. An occlusion cholangiogram was done and the duct looked clear, the gallbladder did not fill with contrast . She underwent cholecystectomy by Dr. Villarreal on 01/15/22 and doing well post operatively. # NAFLD (Non alcholic fatty liver disease) due to obesity - weight loss/exercise advised Time Spent with Patient Time attestation: Total time spent providing and/or coordinating discharge services: Discharge coordination time: Greater than 30 minutes Quality: Safe Use of Opioids Does Pt have an Active Cancer Diagnosis on the Problem List?: No Quality: Stroke Does the patient have a stroke diagnosis?: No Physical Exam Vital Signs: Vital Signs: Last Vital Signs Temp 97.6 F 01/15/22 23:16 Pulse 63 01/15/22 23:16 Resp 17 01/15/22 23:16 BP 142/65 H 01/15/22 23:16 Pulse Ox 99 01/15/22 23:16 BMI result Body Mass Index 31.3 DS: Data Data Completed and Pending Pending studies at discharge: Pending at discharge 01/15/22 11:27 Surgical [PTH] Routine Labs on day of discharge: Laboratory Results - last 24 hr 01/16/22 01/16/22 05:13 05:13 WBC 7.4 RBC 4.14 L Hgb 12.0 Hct 36.7 L MCV 88.6 MCH 29.0 MCHC 32.7 RDW 13.5 Plt Count 235 MPV 10.2 Immature Gran % (Auto) 0.1 Neut % (Auto) 55.3 Lymph % (Auto) 36.4 [place] % (Auto) 8.0 Eos % (Auto) 0.1 Baso % (Auto) 0.1 Lymph # (Auto) 2.7 [place] # (Auto) 0.6 Eos # (Auto) 0.0 Baso # (Auto) 0.0 Abs Immat Gran (auto) 0.01 Absolute Neuts (auto) 4.1 Absolute Nucleated RBC 0.000 Nucleated RBC % (auto) 0.0 Sodium 139 Potassium 3.5 Chloride 106 Carbon Dioxide 25 Anion Gap 12 BUN 6 L Creatinine 0.70 Estim Creat Clear Calc 105.6 Estimated GFR > 60 Random Glucose 103 Calcium 8.9 Discharge Plan Discharge Anticipated Discharge Date/Time: 01/16/22 08:48 Patient Disposition: Home, Self-Care Discharge Diagnosis: Choledocholithiasis Referrals: Aly Craig MD [Physician] - 2 weeks Physician,Roseanne J [Primary Care Provider] - 2 days Elbert Carolina MD [Physician] - 2 weeks Discharge Medications: New hydromorphone [Dilaudid] 2 mg tablet 2 mg PO Q6H PRN (Reason: pain (scale score 7-10)) Qty: 10 0RF docusate sodium [Colace] 100 mg capsule 100 mg PO BID Qty: 30 0RF Continued multivitamin Tablet 1 tab PO DAILY 0RF Discharge Orders: Discharge Order (Routine); Ordered 01/16/22 Ordered By: Andrea Maguire Diet: advance to usual diet Activity on Discharge: As tolerated Stand Alone Forms: Patient Portal Discharge page Activity Restrictions/Additional Instructions: Take your medications as prescribed. If you were prescribed antibiotics today, it is important that you take your medication to their entirety, do not skip any doses, do not finish them early. Follow-up with your primary care provider this week. Follow-up with gastroenterology as necessary and OBGYN . Number below. Return to the emergency department with new or worsening symptoms. Such as fevers, chills, chest pain, shortness of breath, nausea, vomiting, dizziness, headache, vision changes, lethargy In case of emergency call 911 Care Plan Goals: Full recovery from gallbladder surgery Health Concerns: fatty liver disease Plan of Treatment: Take oxycodone as recommended and follow up with your Doctor and Dr. Fish as scheduled Assessment: as above Patient Instructions: Clear Liquid Diet (GEN), Abdominal Pain (ED)
[2022-01-16] MEDS: polyethylene glycoL 3350 17 GM POWD.PACK PO (08:47)
[2022-01-16] MEDS: 0.9 % Sodium Chloride Flush 3 ML SYRINGE IVFLUSH (08:47)
--- NOTE | 2022-01-16 09:23 | PM.PNGS ---
Subjective Subjective Date of Service: 01/16/22 Interval history: feels ok - eating and drinking, complaining of pain doing ok with iv pain meds, complaining of baseline back pain Physical Exam Vital Signs: Vital Signs: Last Vital Signs Temp 97.7 F 01/16/22 08:00 Pulse 61 01/16/22 08:00 Resp 19 01/16/22 08:00 BP 126/69 01/16/22 08:00 Pulse Ox 100 01/16/22 08:00 BMI result Body Mass Index 31.3 Const: General: cooperative and healthy appearing Orientation/consciousness: oriented to person, oriented to place and oriented to time Resp: Auscultation: clear to auscultation bilaterally Cardio: Rate: regular rate Rhythm: regular rhythm GI: Other: soft nondistended, tender at incisions Auscultation: normal bowel sounds Skin: General skin exam: no rashes or lesions noted Neuro: General: oriented to person, oriented to place and oriented to time Objective Data Active Medications Diphenhydramine HCl (Diphenhydramine Hcl 25 Mg Tablet) 25 mg PO Q4H PRN PRN Reason: allergy Last Admin: 01/15/22 22:19 Dose: 25 mg Documented by: YARA Enoxaparin Sodium (Enoxaparin Sodium 40 Mg/0.4 Ml Syringe) 40 mg SUBCUT Q24H [facility] Last Admin: 01/15/22 14:13 Dose: 40 mg Documented by: JOHN Famotidine (Famotidine/Pf 20 Mg/2 Ml Vial) 20 mg IVPUSH BID [facility] Last Admin: 01/16/22 08:44 Dose: 20 mg Documented by: JOHN Hydromorphone HCl (Hydromorphone Hcl 0.5 Mg/0.5 Ml Syringe) 0.5 mg IVPUSH Q3H PRN; Protocol PRN Reason: Pain, Severe (Pain Scale 7-10) Last Admin: 01/16/22 08:47 Dose: 0.5 mg Documented by: JOHN Lactated Ringer's (Lr) 1,000 mls @ 100 mls/hr IVCONT .Q10H [facility] Last Infusion: 01/16/22 08:33 Dose: 100 mls/hr Documented by: JOHN Multivitamins/Vitamin C (Multivitamin Tablet) 1 tab PO DAILY [facility] Last Admin: 01/16/22 08:38 Dose: 1 tab Documented by: JOHN Ondansetron HCl (Ondansetron Hcl 4 Mg/2 Ml Vial) 4 mg IVPUSH Q8H PRN PRN Reason: Nausea and Vomiting Last Admin: 01/13/22 08:01 Dose: 4 mg Documented by: SANDER Oxycodone HCl (Oxycodone Hcl Immed Release 5 Mg Tablet) 5 mg PO Q4H PRN PRN Reason: Pain, Moderate (Pain Scale 4-6 Last Admin: 01/15/22 20:04 Dose: 5 mg Documented by: YARA Pharmacy Consult (Consult Rx Perform Med Rec) 1 each MISCELLANE ONCE PRN PRN Reason: Consult order Polyethylene Glycol (Polyethylene Glycol 3350 17 Gm Powd.Pack) 17 gm PO DAILY [facility] Last Admin: 01/16/22 08:47 Dose: 17 gm Documented by: JOHN Senna (Sennosides 8.6 Mg Tablet) 17.2 mg PO BEDTIME PRN PRN Reason: Constipation Simethicone (Simethicone 80 Mg Tab.Chew) 80 mg PO QIDWMHS PRN PRN Reason: Gas Sodium Chloride (0.9 % Sodium Chloride Flush 3 Ml Syringe) 3 ml IVFLUSH QSHIFT [facility] Last Admin: 01/16/22 08:47 Dose: 3 ml Documented by: JOHN Trazodone HCl (Trazodone Hcl 50 Mg Tablet) 50 mg PO BEDTIME PRN PRN Reason: insomnia Last Admin: 01/14/22 20:19 Dose: 50 mg Documented by: YARA Labs CBC & Chem 7: 01/16/22 05:13 01/16/22 05:13 Labs: Laboratory Results - last 24 hr 01/16/22 01/16/22 05:13 05:13 MCV 88.6 MCH 29.0 MCHC 32.7 RDW 13.5 Plt Count 235 MPV 10.2 Immature Gran % (Auto) 0.1 Neut % (Auto) 55.3 Lymph % (Auto) 36.4 [place] % (Auto) 8.0 Eos % (Auto) 0.1 Baso % (Auto) 0.1 Lymph # (Auto) 2.7 [place] # (Auto) 0.6 Eos # (Auto) 0.0 Baso # (Auto) 0.0 Abs Immat Gran (auto) 0.01 Absolute Neuts (auto) 4.1 Absolute Nucleated RBC 0.000 Nucleated RBC % (auto) 0.0 Anion Gap 12 Estim Creat Clear Calc 105.6 Estimated GFR > 60 Random Glucose 103 Calcium 8.9 Procedures Date of Service Date of Service: 01/16/22 Progress Note: A&P Assessment and plan (1) Choledocholithiasis: Status: Acute Assessment and Plan: pt doing well s.p lap mery - no issues also s/p ercp ok to dc home low fat diet and f.u with surgeons in 1-2 weeks. can shower with tegaderm on and then take off on tuesday and leave open no lifting greater than 10 lbs until seen in office. Time Spent With Patient Time: Total time spent is greater than 50% in coordination of care (as documented) at patient's floor/unit and/or counseling patient: Quality Stroke Does the patient have a stroke diagnosis?: No VTE Prior VTE?: No VTE Risk Level:: Medical - moderate - high VTE Device Contraindication: Treatment Not Indicated VTE Drug Contraindication: N/A - Med Ordered
--- NOTE | 2022-01-16 10:45 | HO.POSTANES ---
Post Anesthesia Evaluation Post Anesthesia Evaluation Vital Signs: Vital Signs Temp Pulse Resp BP Pulse Ox 01/16/22 08:00 97.7 F 61 19 126/69 100 01/15/22 23:16 97.6 F 63 17 142/65 H 99 Anesthesia: General Endotracheal-GETA Mental Status: Awake Pain Control: Satisfactory Nausea/Vomiting: None Hydration: Adequate Anesthesia-Related Issues: No Anes. Related Issues
--- NOTE | 2022-01-16 11:20 | MHC.CM.PN ---
PT MEDICALLY CLEARED FOR D/C HOME SELF-CARE, PT SHOWERING AND WILL D/C ONCE COMPLETE W/SCRIPTS AND OUPT FOLLOW-UP IN SURGEONS OFFICE, PER DISCHARGING RN PAINT MIXER HAND PT IS DECLINING CAB VOUCHER/TRANSPORT.
[2022-01-16] MEDS: Fluconazole 150 MG TABLET PO (11:31)
== END 2022-01-16 11:20 | disposition home or self-care (01) | DRG 263 ==
LOC: HO.ED 19:49 → HO.EDOVER 22:19 → HO.S3 01-10 11:42
PROVIDERS: Emergency Medicine; Family Medicine; Internal Medicine; Internal Medicine Gastroenterology; Physician Assistant; Surgery; Admitting Provider Hospitalist; Emergency Provider Emergency Medicine Emergency Medical Services; Visit Provider Internal Medicine
PROC: 0F798ZZ Dilation of Common Bile Duct, Via Natural or Artificial Opening Endoscopic (ICD-10-PCS; CPT 43260; principal; 2022-01-13 16:00)
PROC: 0FT44ZZ Resection of Gallbladder, Percutaneous Endoscopic Approach (ICD-10-PCS; CPT 47562; principal; 2022-01-15 10:00)
DX: K80.44 Calculus of bile duct with chronic cholecystitis without obstruction (principal); K76.0 Fatty (change of) liver, not elsewhere classified; E66.9 Obesity, unspecified; K59.00 Constipation, unspecified; F43.10 Post-traumatic stress disorder, unspecified; Z68.31 Body mass index [BMI] 31.0-31.9, adult; Z20.822 Contact with and (suspected) exposure to COVID-19; Z98.51 Tubal ligation status; Z88.6 Allergy status to analgesic agent; Z79.899 Other long term (current) drug therapy
CPT/HCPCS: 36415; 74176; 74181; 76700; 76830; 76856; 80048; 80053; 80061; 80076; 81003; 81025; 82248; 83036; 83690; 85025; 85027; 85610; 86704; 86706; 86709; 86803; 87340; 87635; 88304; 93975; 99024; 99285; C1769; C1887; J0131; J0690; J1100; J1170; J1200; J1610; J1650; J2060; J2250; J2370; J2405; J3010; Q0163; Q9967

== ENCOUNTER 2022-02-25 14:03 | Emergency (ER) | payer OTHER, SELFPAY ==
--- NOTE | ~2022-02-25 | XR_ITS ---
EXAMINATION: XR FOOT, LEFT CLINICAL INFORMATION: Pain COMPARISON: None TECHNIQUE: AP, lateral, and oblique views of the left foot. FINDINGS: No acute fracture or dislocation. Joint spaces are maintained. Soft tissues are unremarkable. Plantar calcaneal spurring. No joint effusion. XR/XR foot LT 2V IMPRESSION: No acute fracture or dislocation. Plantar calcaneal spurring.
[2022-02-25 14:24] VITALS: BP 107/69; PULSE 82; RESP 18; TEMP 36.6; O2SAT 96; BMI 30.4
--- NOTE | 2022-02-25 16:21 | ED.LOWEXIN ---
HPI - Extremity Injury (Lower) General Chief Complaint: Extremity Injury, Lower Stated Complaint: ceiling fell on l foot Time Seen by Provider: 02/25/22 16:21 Source: patient Mode of arrival: ambulatory History of Present Illness HPI Narrative: 46-year-old female without significant past medical history presents after having a portion of her bathroom ceiling fall on her left foot this morning. Patient reports that there is pain to the dorsal portion of left foot and states that it is difficult for her to walk on that foot. She denies any head strike or other injuries. Related Data Home Medications Medication Instructions Recorded Confirmed multivitamin 1 tab PO DAILY 01/09/22 01/29/22 Allergies Allergy/AdvReac Type Severity Reaction Status Date / Time ibuprofen [From Motrin] Allergy Hives Verified 01/29/22 11:32 NSAIDS (Non-Steroidal Allergy Hives Verified 01/29/22 11:32 Anti-Inflamma back medicin Allergy Hives Uncoded 01/29/22 11:32 Review of Systems Review of Systems: Pertinent positives and negatives as stated in HPI 10 point review of systems is otherwise negative. [facility] Past Medical History Source: nursing notes reviewed Medical History Constipation Gallstones Gestational diabetes Heart murmur Hepatic steatosis Neck pain PTSD (post-traumatic stress disorder) Surgical History H/O tubal ligation History of ERCP (01/13/22) History of laparoscopic cholecystectomy (01/15/22) Family History Family History Mother Breast cancer, Onset Age: 50 Social History Social History Household Members: Spouse and Children Housing: Other Housing Other:: snf Alcohol intake: never Patient Tobacco Use Status: Never used Tobacco Second Hand Smoke Exposure: No service: No Current occupational status: unemployed Physical Exam Vital Signs: Vital Signs: Last Vital Signs Temp 97.9 F 02/25/22 14:24 Pulse 82 02/25/22 14:24 Resp 18 02/25/22 14:24 BP 107/69 02/25/22 14:24 Pulse Ox 96 02/25/22 14:24 O2 Del Method 02/25/22 14:24 BMI result Body Mass Index 30.4 VITAL SIGNS: Reviewed. GENERAL: Well developed, well nourished, in no acute distress. HEAD: Normocephalic/atraumatic EYES: PERRLA, EOMI EARS: Ext canals without abnormality OROPHARYNX: no oral lesions noted, posterior pharynx clear LUNGS: Normal breath sounds. No adventitious sounds or accessory muscle use. SpO2<96> CARDIOVASCULAR: Regular rate and rhythm without noted murmurs ABDOMEN: Soft, non-tender, non-distended with bowel sounds. MUSCULOSKELETAL: No tenderness, deformities, or effusions noted on gross inspection. EXTREMITIES: No cyanosis, clubbing or edema; LEFT FOOT/ANKLE: There is no apparent injury to the left foot or ankle, no deformity/ecchymosis/abrasion, there is no noted swelling at the medial malleolus and unclear swelling at the lateral malleolus, DP/PT are palpable and strong, capillary refills less than 3 seconds and sensation is fully intact. Patient does report some pain on dorsiflexion and palpation. SKIN: Inspection of the skin reveals no rashes, ulcerations, jaundice, pallor, or petechiae. NEUROLOGIC: Alert and oriented x 4. Strength and sensation to light touch were grossly intact x 4. Course Course Course Narrative: This is a 46-year-old female with history and clinical presentation consistent with soft tissue injury and on review of investigations no evidence for acute fracture or dislocation. Patient will have an Demarco wrap applied, she was given a list of primary care providers that she could contact for re-evaluation follow-up. She was encouraged that she does not need an Orthopedic surgery consultation and declined any Tylenol or ibuprofen at this time. Discharge Plan Discharge Clinical Impression: Pain in joint, ankle and foot, Soft tissue injury Patient Disposition: Home, Self-Care Instructions: Arthralgia (ED) Additional Instructions: 1. Recommend elevation an application of ice for 10-15 minutes to unexposed skin, 2 to 3 times a day. 2. You have been provided with a list of primary care doctors that you can follow-up and are associated with [facility]. Please contact them for re-evaluation. Return to the ER for any worsening of your symptoms. Prescriptions: No Action multivitamin Tablet 1 tab PO DAILY
== END 2022-02-25 16:42 | disposition home or self-care (01) ==
PROVIDERS: Emergency Provider Student in an Organized Health Care Education/Training Program
DX: M25.572 Pain in left ankle and joints of left foot (principal)
CPT/HCPCS: 73620; 99282; 99283

== ENCOUNTER 2022-03-21 20:47 | Emergency (ER) | payer OTHER, SELFPAY ==
[2022-03-21 21:40] VITALS: BP 112/60; PULSE 76; RESP 18; TEMP 36.6; O2SAT 99; BMI 30.7
[2022-03-21 23:10] LABS: MANUAL DIFF FLAG NO
[2022-03-21 23:11] LABS: Basophils Percent Auto 0.3 % (0-2); Eosinophils Absolute Auto 0.1 X10*3/uL (0.0-0.4); Eosinophils Percent Auto 0.9 % (0-4); Hematocrit 40.9 % (37.0-47.0); Hemoglobin 13.8 g/dl (12.0-16.0); Imm Gran Abs Auto 0.01 X10*3/uL (0.00-0.03); Imm Gran Pct Auto 0.2 % (0.0-0.4); Lymphocytes Percent Auto 45.7 % (20-40); Mean Corpuscular HGB Conc 33.7 g/dl (31.0-35.0); Mean Corpuscular Hemoglobin 29.7 pg (27.0-33.0); Mean Corpuscular Volume 88.1 fL (80.0-98.0); Mean Platelet Volume 9.7 fL (9.4-12.3); Monocytes Absolute Auto 0.4 X10*3/uL (0.1-1.2); Monocytes Percent Auto 6.2 % (2-11); Neutrophils Percent Auto 46.7 % (45-73); Platelet Count 265 X10*3/uL (160-400); Red Blood Count 4.64 X10*6/uL (4.20-5.50); Red Cell Distribution Width 13.2 % (11.0-16.0); White Blood Count 6.5 X10*3/uL (4.8-10.8)
[2022-03-21 23:12] LABS: Appearance Urine HAZY; Color Urine YELLOW; Glucose Urine UA NEG (NEG); Leukocyte Esterase Urine 2+ (NEG); Nitrite Urine NEG (NEG); PH 5.5 (5.0-8.0); Specific Gravity - Urine >= 1.030 (1.005-1.025); UACC Culture Trigger YES; Urine Blood NEG (NEG); Urine Ketones NEG (NEG); Urine Protein NEG (NEG-TRACE)
[2022-03-21 23:19] LABS: Bacteria Urine 2+ /LPF; Mucus Urine 1+ /LPF; RBC Urine 0-2 /HPF (0); Squamous Epithelial Cell Urine 2+ /LPF
[2022-03-21 23:20] LABS: Calcium Oxalate Crystals Urine 3+ /LPF
[2022-03-21 23:34] LABS: Alanine Aminotransferase 19 U/L (0-31); Albumin Level 4.5 g/dL (3.5-5.0); Alkaline Phosphatase 102 U/L (39-117); Anion Gap 13 (12-20); Aspartate Amino Transferase 16 U/L (5-31); Bilirubin Direct < 0.2 mg/dL (0.0-0.5); Bilirubin Total 0.4 mg/dL (0.0-1.0); Blood Urea Nitrogen 8 mg/dL (9-16); Calcium 9.4 mg/dL (8.4-10.2); Carbon Dioxide 26 mmol/L (22-29); Chloride 105 mmol/L (96-108); Creatinine Clr Calc Pharmacy 88.1; Estimated Glomerular Filt Rate > 60; Glucose Random 127 mg/dL (60-115); Lipase 27 U/L (8-78); Potassium 3.6 mmol/L (3.3-5.1); Sodium 140 mmol/L (135-145); Total Protein 7.7 g/dL (6.5-8.0)
[2022-03-22 02:29] VITALS: BP 101/75; PULSE 65; O2SAT 99
--- NOTE | 2022-03-22 03:05 | ED_ITS ---
HPI - Abdominal Pain General Chief Complaint: Abdominal Pain Stated Complaint: UTI and Yeast Infection Time Seen by Provider: 03/22/22 00:29 Source: patient Mode of arrival: ambulatory Limitations: no limitations History of Present Illness HPI narrative: 46-year-old female who presents emergency department complaining of right lower back pain, urinary frequency and vaginal discharge. Patient states that she has been having lower back pain for approximately 1 week. She points to her right flank area when asked to describe the pain. She states the pain is an intermittent dull pain which is worse with movement. She states that the pain is 6/10 at its worst. She did not have any injury to her back. She also complains of urinary frequency but no dysuria. She has noted a thick white vaginal discharge and she believes that she has a used infection. She states she has had similar discharges in the past with a used infection. The patient did not take any pain medications for her back pain. She states that she can take ibuprofen but did not take any for her pain. She denied fever, chills, rhinorrhea, sore throat, cough, chest pain, shortness of breath, nausea, vomiting, diarrhea. MD elicited complaint: flank pain Onset (ago): week(s) (1) Pain Consistency: intermittent Location: R flank Severity: moderate Pain scale (0-10): 6 Quality: dull Radiation: none Migration to: no migration Exacerbating factors: movement Relieving factors: nothing Related Data Home Medications Medication Instructions Recorded Confirmed multivitamin 1 tab PO DAILY 01/09/22 01/29/22 Previous Rx's Medication Instructions Recorded fluconazole 150 mg tablet 150 mg PO QWEEK 2 doses #2 tabs 03/22/22 (Diflucan) ibuprofen 600 mg tablet 600 mg PO Q6H PRN pain #30 tabs 03/22/22 Allergies Allergy/AdvReac Type Severity Reaction Status Date / Time ibuprofen [From Motrin] Allergy Hives Verified 01/29/22 11:32 NSAIDS (Non-Steroidal Allergy Hives Verified 01/29/22 11:32 Anti-Inflamma back medicin Allergy Hives Uncoded 01/29/22 11:32 Review of Systems Review of Systems Yes all other systems are reviewed and are negative PMFSH Past Medical History [facility] Narrative: Social history: She denies tobacco use. She occasionally drinks alcohol. She denies drug use. Medical History Constipation Gallstones Gestational diabetes Heart murmur Hepatic steatosis Neck pain PTSD (post-traumatic stress disorder) Surgical History H/O tubal ligation History of ERCP (01/13/22) History of laparoscopic cholecystectomy (01/15/22) Family History Family History Mother Breast cancer, Onset Age: 50 Social History Social History Household Members: Spouse and Children Housing: Other Housing Other:: halfway Alcohol intake: never Patient Tobacco Use Status: Never used Tobacco Second Hand Smoke Exposure: No Advance Directives: No Advance Directives Information Provided: No service: No Current occupational status: unemployed Physical Exam ED Vital Signs: Vital Signs - 24 hr 03/21/22 21:40 03/22/22 02:29 Temperature 97.9 F Pulse Rate 76 65 Respiratory Rate 18 Blood Pressure 112/60 101/75 Pulse Oximetry 99 99 Oxygen Delivery Method Room Air Room Air BMI result Body Mass Index 30.7 Const General: cooperative and no acute distress Orientation/consciousness: oriented to person and oriented to place Limitations: no limitations HENMT Head: Yes normal to inspection, Yes normocephalic and Yes atraumatic Ears: external ears normal General nose exam: Normal external nose present Face and sinus: Yes normal facial exam Mouth: Normal oral and palatal mucosa present Throat: Yes posterior oropharynx normal Eyes General: appearance normal, both eyes and all related structures Pupils: Equal, round and reactive pupils present Neck Neck: Yes normal visual inspection, Yes no lymphadenopathy, Yes trachea midline and Yes supple Chest Chest palpation & inspection: normal inspection of the chest and normal palpation of entire chest wall Resp Effort & Inspection: normal respiratory effort and able to speak in complete sentences Auscultation: clear to auscultation bilaterally Cardio Rate: regular rate Rhythm: regular rhythm Heart sounds: S1 normal heart sound present, S2 normal heart sound present and no murmurs GI Inspection: Yes normal to inspection Palpation (GI): Soft to palpation, nontender and no guarding Auscultation: normal bowel sounds General: Yes no CVA tenderness Back/Spine/Pelvis Other: Patient has tenderness palpation of her lumbar sacral paraspinal muscles, there is no vertebral tenderness, she has negative straight leg raises bilaterally Back: no CVA tenderness Skin General skin exam: no rashes or lesions noted Neuro General: oriented to person and oriented to place Cranial nerves: Yes CN's II-XII intact bilaterally and Yes Equal, round and reactive pupils present Cognition (Neuro): normal cognition Motor exam (neuro): 5/5 motor strength present throughout Extrem General: Yes normal to inspection Psych Appearance: grossly normal Speech and movement: Normal speech and movement present Affect: normal affect Attitude: cooperative Thought process: Normal thought process present Thought content: Normal thought content present Course Course Course Narrative: 46-year-old female who presents emergency department for evaluation of right lower back/flank pain, urinary frequency and vaginal discharge. Patient's vital signs were normal. Patient's exam did reveal tenderness with palpation of her right lumbar sacral paraspinal muscles with negative straight leg raises bilaterally. She had no abdominal tenderness. The patient's laboratory evaluation revealed a normal CBC and normal CMP. Lipase was not elevated. Patient's urinalysis revealed 2+ leukocyte esterase. Microscopic revealed 14 WBCs, 2+ bacteria, 2+ squamous cells. The patient's presentation is consistent with lumbar strain and a yeast infection patient was advised to take ibuprofen 600 mg 3 times a day as needed for pain. She is also given prescription for Diflucan 150 mg and repeat dose in 1 week. Printed and verbal instructions discharged home. MDM - Abdominal Pain Lab Data Result diagrams: 03/21/22 23:08 03/21/22 23:08 Labs: Lab Results 03/21/22 03/21/22 03/21/22 Range/Units 23:08 23:08 23:08 WBC 6.5 (4.8-10.8) X10*3/uL RBC 4.64 (4.20-5.50) X10*6/uL Hgb 13.8 (12.0-16.0) g/dl Hct 40.9 (37.0-47.0) % MCV 88.1 (80.0-98.0) fL MCH 29.7 (27.0-33.0) pg MCHC 33.7 (31.0-35.0) g/dl RDW 13.2 (11.0-16.0) % Plt Count 265 (160-400) X10*3/uL MPV 9.7 (9.4-12.3) fL Immature Gran % (Auto) 0.2 (0.0-0.4) % Neut % (Auto) 46.7 (45-73) % Lymph % (Auto) 45.7 H (20-40) % [place] % (Auto) 6.2 (2-11) % Eos % (Auto) 0.9 (0-4) % Baso % (Auto) 0.3 (0-2) % Lymph # (Auto) 3.0 (1.2-4.9) X10*3/uL [place] # (Auto) 0.4 (0.1-1.2) X10*3/uL Eos # (Auto) 0.1 (0.0-0.4) X10*3/uL Baso # (Auto) 0.0 (0.0-0.2) X10*3/uL Abs Immat Gran (auto) 0.01 (0.00-0.03) X10*3/uL Absolute Neuts (auto) 3.0 (2.0-8.3) x10*3/uL Absolute Nucleated RBC 0.000 (0.0-0.012) X10*3/uL Nucleated RBC % (auto) 0.0 (0.0-0.2) /100WBC Sodium 140 (135-145) mmol/L Potassium 3.6 (3.3-5.1) mmol/L Chloride 105 (96-108) mmol/L Carbon Dioxide 26 (22-29) mmol/L Anion Gap 13 (12-20) BUN 8 L (9-16) mg/dL Creatinine 0.77 (0.5-1.4) mg/dL Estim Creat Clear Calc 88.1 Estimated GFR > 60 Random Glucose 127 H (60-115) mg/dL Calcium 9.4 (8.4-10.2) mg/dL Total Bilirubin 0.4 (0.0-1.0) mg/dL Direct Bilirubin < 0.2 (0.0-0.5) mg/dL AST 16 D (5-31) U/L ALT 19 (0-31) U/L Alkaline Phosphatase 102 D (39-117) U/L Total Protein 7.7 D (6.5-8.0) g/dL Albumin 4.5 D (3.5-5.0) g/dL Lipase 27 (8-78) U/L Urine Color YELLOW Urine Appearance HAZY Urine pH 5.5 (5.0-8.0) Ur Specific [place] >= 1.030 H (1.005-1.025) Urine Protein NEG (NEG-TRACE) MG/DL Urine Glucose (UA) NEG (NEG) MG/DL Urine Ketones NEG (NEG) MG/DL Urine Blood NEG (NEG) Urine Nitrite NEG (NEG) Ur Leukocyte Esterase 2+ H (NEG) Urine RBC 0-2 (0) /HPF Urine WBC 10-14 H (0-4) /HPF Ur Squamous Epith Cells 2+ /LPF Calcium Oxalate Crystal 3+ /LPF Urine Bacteria 2+ /LPF Urine Mucus 1+ /LPF Discharge Plan Discharge Clinical Impression: Yeast infection of the vagina Acute lumbar myofascial strain Qualifiers: Encounter type: initial encounter Qualified Code(s): S39.012A - Strain of muscle, fascia and tendon of lower back, initial encounter Patient Disposition: Home, Self-Care Instructions: Yeast Infection (ED), Low Back Strain (ED) Additional Instructions: Take Diflucan 150 mg, 1 pill now and then repeat this in 1 week. Take ibuprofen 600 mg, 1 pill every 8 hours as needed for pain. Follow-up with your doctor in 2 days. Please return to the emergency department if your symptoms get worse or if you develop any symptoms that are concerning to you. Prescriptions: New ibuprofen 600 mg tablet 600 mg PO Q6H PRN (Reason: pain) Qty: 30 0RF fluconazole [Diflucan] 150 mg tablet 150 mg PO QWEEK Qty: 2 0RF No Action multivitamin Tablet 1 tab PO DAILY
== END 2022-03-22 03:19 | disposition home or self-care (01) ==
PROVIDERS: Emergency Provider Emergency Medicine Emergency Medical Services
DX: B37.3 Candidiasis of vulva and vagina (principal); S39.012A Strain of muscle, fascia and tendon of lower back, initial encounter; X58.XXXA Exposure to other specified factors, initial encounter; Y93.9 Activity, unspecified; Y92.9 Unspecified place or not applicable; Y99.9 Unspecified external cause status
CPT/HCPCS: 36415; 80053; 81001; 82248; 83690; 85025; 87086; 99283